=== PATIENT | female | born 1985 | race Caucasian/White ===

== ENCOUNTER 2018-12-02 10:57 | Emergency (ER) | payer SELFPAY ==
[~2018-12-02] VITALS: Ht 167.6 cm; Wt 68.0 kg
--- NOTE | 2018-12-02 10:59 | NUR ---
ED Nurse Note: PT BROUGHT IN BY [id number] FROM HOME. AOX4. PT C/O UPPER ABDOMINAL PAIN, 02/04 X 2 DAYS AGO. PT ALSO C/O NAUSEA AND VOMITING. PT STATES SHE HAS HX OF ABDOMINAL MIGRAINES AND WAS SEEN AT [facility] X 2 DAYS AGO. PT WAS GIVEN RX FOR REGLAN BUT STATES SHE DID NOT TAKE THE MEDICATION. LAST BM X THIS AM WHICH PT STATES WAS FORMED.
[2018-12-02] MEDS ORDERED: DiphenhydrAMINE 50mg/ml Inj IVP ONE (11:00)
[2018-12-02] MEDS ORDERED: Dexamethasone 4mg/ml vial IVP ONE (11:00)
[2018-12-02 11:17] VITALS: BP 154/100
[2018-12-02 11:18] LABS: BASOPHILS % (AUTO) 1.5 % (0.0-2.0); EOSINOPHILS % (AUTO) 1.8 % (0.0-3.0); HEMOGLOBIN 17.1 G/DL (12.0-16.0); LYMPHOCYTES % (AUTO) 26.1 % (20.0-45.0); MEAN CORPUSCULAR VOLUME 95 FL (80-99); NEUTROPHILS % (AUTO) 64.6 % (45.0-75.0); PLATELET COUNT 274 K/UL (150-450); RED BLOOD COUNT 5.16 M/UL (4.20-5.40); RED CELL DISTRIBUTION WIDTH 12.2 % (11.6-14.8); WHITE BLOOD COUNT 10.8 K/UL (4.8-10.8)
--- NOTE | 2018-12-02 11:19 | Emergency Room Report ---
History of Present Illness General Chief Complaint: Vomiting Source: Medical Record Present Illness HPI 33-year-old female history of abdominal migraines presents with acute nausea and vomiting that started at 7 AM, no aggravating or alleviating factors, patient has vomited over 5-6 times, patient was recently discharged from [facility] 11/30/2018, patient denies any chest pain shortness of breath, she states that she is having really bad abdominal migraines severity is severe. States she feels abdominal cramps diffusely that come and go. Allergies: Coded Allergies: DULOXETINE (Verified Allergy, Unknown, 12/02/18) Patient History Past Medical History: see triage record Last Menstrual Period: unknown Reviewed Nursing Documentation: PMH: Agreed; PSxH: Agreed Nursing Documentation-PMH Past Medical History: No History, Except For Review of Systems All Other Systems: negative except mentioned in HPI Physical Exam Vital Signs Date Time Temp Pulse Resp B/P (MAP) Pulse Ox O2 Delivery O2 Flow Rate FiO2 12/02/18 10:57 98.6 65 20 139/77 (97) 100 Room Air Sp02 EP Interpretation: reviewed, normal General Appearance: alert, moderate distress - actively vomiting Head: normocephalic, atraumatic Eyes: bilateral eye PERRL, bilateral eye EOMI ENT: uvula midline, dry mucus membranes Neck: supple, thyroid normal, supple/symm/no masses Respiratory: lungs clear, no respiratory distress, no retraction, no accessory muscle use Cardiovascular #1: normal peripheral pulses, regular rate, rhythm, no edema, no gallop, no murmur Gastrointestinal: non tender, soft, no guarding, no rebound Musculoskeletal: normal inspection Neurologic: alert, oriented x3 Psychiatric: anxious Skin: no rash, warm/dry Medical Decision Making Diagnostic Impression: Primary Impression: Vomiting Qualified Codes: R11.2 - Nausea with vomiting, unspecified ER Course 33-year-old female history of abdominal migraines presents with acute nausea and vomiting, recently discharged from [facility] with a negative work-up, patient has not had a chance to fill her prescriptions from [facility], she presents with acute nausea and vomiting that started at 7 AM, on the differential includes appendicitis, migraines, diverticulitis, patient with a soft abdomen low suspicion for acute intra-abdominal pathology, provide patient with migraine cocktail consistent with what she received at [facility]. Patient slowly improved. Still providing patient with fluid hydration, 2 L. Reevaluation at 12:05 PM, patient's abdomen is still soft and nontender, patient however still has continued emesis, patient states she wants to leave AGAINST MEDICAL ADVICE The patient has requested to leave the ED against medical advice. The patient reason(s) for leaving include, but are not limited to, the following: "I just want to go home". I believe this patient is of sound mind and competent to refuse medical care. The patient is responding and asking questions appropriately. The patient is oriented to person, place and time. The patient is not psychotic, delusional, suicidal, homicidal or hallucinating. The patient demonstrates a normal mental capacity to make decisions regarding their healthcare. The patient is clinically sober and does not appear to be under the influence of any illicit drugs at this time. The patient has been advised of the risks, in layman terms, of leaving AMA which include, but are not limited to , coma, permanent disability, loss of current lifestyle, delay in diagnosis. Alternatives have been offered - the patient remains steadfast in their wish to leave. The patient has been advised that should they change their mind they are welcome to return to this hospital, or any other, at any time. The patient understands that in no way does an AMA discharge mean that I do not want them to have the best medical care available. To this end, I have provided appropriate prescriptions, referrals, and discharge instructions. The patient did sign AMA paperwork. The above discussion was witnessed by another member of staff. Laboratory Tests Test 12/02/18 11:10 White Blood Count 10.8 K/UL (4.8-10.8) Red Blood Count 5.16 M/UL (4.20-5.40) Hemoglobin 17.1 G/DL (12.0-16.0) H Hematocrit 49.0 % (37.0-47.0) H Mean Corpuscular Volume 95 FL (80-99) Mean Corpuscular Hemoglobin 33.2 PG (27.0-31.0) H Mean Corpuscular Hemoglobin Concent 34.9 G/DL (32.0-36.0) Red Cell Distribution Width 12.2 % (11.6-14.8) Platelet Count 274 K/UL (150-450) Mean Platelet Volume 6.4 FL (6.5-10.1) L Neutrophils (%) (Auto) 64.6 % (45.0-75.0) Lymphocytes (%) (Auto) 26.1 % (20.0-45.0) Monocytes (%) (Auto) 6.0 % (1.0-10.0) Eosinophils (%) (Auto) 1.8 % (0.0-3.0) Basophils (%) (Auto) 1.5 % (0.0-2.0) Sodium Level 139 MMOL/L (136-145) Potassium Level 3.2 MMOL/L (3.5-5.1) L Chloride Level 102 MMOL/L (98-107) Carbon Dioxide Level 22 MMOL/L (21-32) Anion Gap 16 mmol/L (5-15) H Blood Urea Nitrogen 12 mg/dL (7-18) Creatinine 1.0 MG/DL (0.55-1.30) Estimate Glomerular Filtration Rate > 60 mL/min (>60) Glucose Level 98 MG/DL (74-106) Calcium Level 9.9 MG/DL (8.5-10.1) Total Bilirubin 0.5 MG/DL (0.2-1.0) Aspartate Amino Transferase (AST) 31 U/L (15-37) Alanine Aminotransferase (ALT) 52 U/L (12-78) Alkaline Phosphatase 100 U/L (46-116) Total Protein 9.3 G/DL (6.4-8.2) H Albumin 5.2 G/DL (3.4-5.0) H Globulin 4.1 g/dL Albumin/Globulin Ratio 1.3 (1.0-2.7) Lipase 160 U/L (73-393) Human Chorionic Gonadotropin, Quant < 1 mIU/mL (1-6) L Last Vital Signs Date Time Temp Pulse Resp B/P (MAP) Pulse Ox O2 Delivery O2 Flow Rate FiO2 12/02/18 10:57 98.6 65 20 139/77 (97) 100 Room Air Disposition: AGAINST MEDICAL ADVICE Condition: Stable Referrals: [facility] Patient Instructions: Nausea and Vomiting, Adult Additional Instructions: The patient was provided with discharge instructions, notified to follow-up with a primary care doctor and or specialist in the next 24-48 hours, and to return to the ED if they have worsening of their symptoms. Please note that this report is being documented using [employer] technology. This can lead to erroneous entry secondary to incorrect interpretation by the dictating instrument. Please fill your prescriptions from Lefty Dash MD Dec 02, 2018 11:19
[2018-12-02 11:28] LABS: ANION GAP 16 mmol/L (5-15); BLOOD UREA NITROGEN 12 mg/dL (7-18); CALCIUM 9.9 MG/DL (8.5-10.1); CARBON DIOXIDE 22 MMOL/L (21-32); CHLORIDE 102 MMOL/L (98-107); POTASSIUM 3.2 MMOL/L (3.5-5.1); SODIUM 139 MMOL/L (136-145)
[2018-12-02 11:33] LABS: ALANINE AMINOTRANSFERASE 52 U/L (12-78); ALBUMIN 5.2 G/DL (3.4-5.0); ALBUMIN/GLOBULIN RATIO 1.3 (1.0-2.7); ALKALINE PHOSPHATASE 100 U/L (46-116); ASPARTATE AMINO TRANSFERASE 31 U/L (15-37); BILIRUBIN,TOTAL 0.5 MG/DL (0.2-1.0)
--- NOTE | 2018-12-02 12:00 | NUR ---
ED Nurse Note: URINE COLLECTED AND SENT TO LAB.
--- NOTE | 2018-12-02 12:05 | NUR ---
ED Nurse Note: PT VERBALIZES THAT SHE WANTS TO LEAVE WITHOUT COMPLETING TREATMENT. DR ELENA AND PRIMARY RN AT BEDSIDE. EXPLAINING THE RISKS AND CONSEQUENCES INVOLVED IN LEAVING THE HOSPITAL AT THIS TIME WELL THE BENEFITS OF CONTINUED TREATMENT. PT VERBALIZES UNDERSTANDING BUT STILL WISHES TO LEAVE. AMA FORM SIGNED BY PT AND WITNESSED BY PRIMARY RN. PT WALKED OUT OF ER WITH STEADY GAIT AND ALL BELONGINGS ACCOMPANIED BY PARTNER.
--- NOTE | 2018-12-02 12:06 | NUR ---
ED Nurse Note: DISCHARGE VITALS NOT TAKEN DUE TO PT WISHING TO LEAVE AMA.
[2018-12-02 12:10] VITALS: BP 154/100
[2018-12-02 12:13] LABS: APPEARANCE,URINE CLEAR; BILIRUBIN, URINE NEGATIVE (NEGATIVE); GLUCOSE, URINE (UA) NEGATIVE (NEGATIVE); KETONES,URINE 2+ (NEGATIVE); LEUKOCYTE ESTERASE ,URINE 1+ (NEGATIVE); NITRITE,URINE NEGATIVE (NEGATIVE); PH,URINE 7 (4.5-8.0); PROTEIN,URINE 1+ (NEGATIVE); UROBILINOGEN,URINE 1 MG/DL (0.0-1.0)
[2018-12-02 12:16] LABS: COLOR,URINE YELLOW
== END 2018-12-02 12:05 | disposition left against medical advice (07) ==
LOC: EDBD 10:57 → EMR 11:35
DX: R11.2 Nausea with vomiting, unspecified (principal); Z88.8 Allergy status to other drugs, medicaments and biological substances
CPT/HCPCS: 36415; 80053; 80307; 81003; 81025; 83690; 84702; 85025; 96361; 96374; 96375; 99284; J0780; J1100; J1200

== ENCOUNTER 2019-03-23 14:27 | Emergency (ER) | payer OTHER ==
[~2019-03-23] VITALS: Ht 167.6 cm; Wt 59.0 kg
[2019-03-23 14:56] VITALS: BP 117/71
--- NOTE | 2019-03-23 14:56 | NUR ---
ED Nurse Note: Patient came into ER with nurse from clinic. Patient c/o abdominal pain with nausea and vomiting, and migraine headache. pt states a pain scale of 4/10. Patient guarding abdomen. Patient is AAOx4, patient vital signs are stable, no respiratory or cardiac distress noted. Placed patient on cardiac monitors. ERMJazmin Lam at the bedside.
[2019-03-23] MEDS ORDERED: DiphenhydrAMINE 50mg/ml Inj IVP ONE (15:00)
[2019-03-23] MEDS ORDERED: Metoclopramide 10mg/2ml Inj IVP ONE (15:00)
[2019-03-23] MEDS ORDERED: D5NS 1,000 ML IV ONE (15:00)
--- NOTE | 2019-03-23 15:01 | Emergency Room Report ---
History of Present Illness General Chief Complaint: Abdominal Pain Source: Patient Present Illness HPI 33-year-old female history of abdominal migraines presents with acute nausea and vomiting that started 1 day ago, no aggravating or alleviating factors, patient has vomited no blood, similar to previous abdominal migraines, attempted sumatriptan, but it did not work. She states that she is having really bad abdominal migraines severity is severe. States she feels abdominal cramps diffusely that come and go. Allergies: Coded Allergies: DULOXETINE (Verified Allergy, Unknown, 12/02/18) Patient History Past Medical History: see triage record Last Menstrual Period: 03/17/19 Reviewed Nursing Documentation: PMH: Agreed; PSxH: Agreed Nursing Documentation-PMH Past Medical History: No History, Except For Review of Systems All Other Systems: negative except mentioned in HPI Physical Exam Vital Signs Date Time Temp Pulse Resp B/P (MAP) Pulse Ox O2 Delivery O2 Flow Rate FiO2 03/23/19 14:46 97.5 111 20 130/88 (102) 97 Room Air Sp02 EP Interpretation: reviewed, normal General Appearance: well appearing, no apparent distress, alert Head: normocephalic, atraumatic Eyes: bilateral eye PERRL, bilateral eye EOMI ENT: uvula midline, dry mucus membranes Neck: supple, thyroid normal, supple/symm/no masses Respiratory: lungs clear, no respiratory distress, no retraction, no accessory muscle use Cardiovascular #1: normal peripheral pulses, no edema, no gallop, no murmur, tachycardia Gastrointestinal: non tender, soft, no guarding, no rebound Musculoskeletal: normal inspection Neurologic: alert, oriented x3 Psychiatric: mood/affect normal Skin: no rash, warm/dry Medical Decision Making Diagnostic Impression: Primary Impression: Abdominal migraine Qualified Codes: G43.D0 - Abdominal migraine, not intractable ER Course 33-year-old female presents with recurrent abdominal migraine, Reglan, Zofran, Benadryl, given, steroid as well differential diagnosis also included diverticulitis appendicitis, abdomen was soft nontender no rebound no guarding Patient was rehydrated, reevaluation at 5:25 PM, patient feels better with resolution of her symptoms Disposition home with return precautions, patient has sumatriptan at the pharmacy which she will refill Laboratory Tests Test 03/23/19 15:15 White Blood Count 11.8 K/UL (4.8-10.8) H Red Blood Count 5.18 M/UL (4.20-5.40) Hemoglobin 17.0 G/DL (12.0-16.0) H Hematocrit 48.6 % (37.0-47.0) H Mean Corpuscular Volume 94 FL (80-99) Mean Corpuscular Hemoglobin 32.9 PG (27.0-31.0) H Mean Corpuscular Hemoglobin Concent 35.0 G/DL (32.0-36.0) Red Cell Distribution Width 10.3 % (11.6-14.8) L Platelet Count 229 K/UL (150-450) Mean Platelet Volume 7.1 FL (6.5-10.1) Neutrophils (%) (Auto) 77.0 % (45.0-75.0) H Lymphocytes (%) (Auto) 16.2 % (20.0-45.0) L Monocytes (%) (Auto) 5.4 % (1.0-10.0) Eosinophils (%) (Auto) 0.8 % (0.0-3.0) Basophils (%) (Auto) 0.6 % (0.0-2.0) Sodium Level 140 MMOL/L (136-145) Potassium Level 4.8 MMOL/L (3.5-5.1) Chloride Level 103 MMOL/L (98-107) Carbon Dioxide Level 21 MMOL/L (21-32) Anion Gap 16 mmol/L (5-15) H Blood Urea Nitrogen 11 mg/dL (7-18) Creatinine 0.9 MG/DL (0.55-1.30) Estimate Glomerular Filtration Rate > 60 mL/min (>60) Glucose Level 92 MG/DL (74-106) Calcium Level 9.6 MG/DL (8.5-10.1) Total Bilirubin 0.6 MG/DL (0.2-1.0) Aspartate Amino Transferase (AST) 28 U/L (15-37) Alanine Aminotransferase (ALT) 33 U/L (12-78) Alkaline Phosphatase 87 U/L (46-116) Total Protein 8.4 G/DL (6.4-8.2) H Albumin 4.5 G/DL (3.4-5.0) Globulin 3.9 g/dL Albumin/Globulin Ratio 1.2 (1.0-2.7) Lipase 105 U/L (73-393) EKG Diagnostic Results EKG Time: 15:23 EP Interpretation: NSR, rate 85, QTc 449, no acute ST elevations normal axis Rhythm Strip Diag. Results Rhythm Strip Time: 17:24 EP Interpretation: yes Rate: 83 Rhythm: NSR, no PVC's, no ectopy Last Vital Signs Date Time Temp Pulse Resp B/P (MAP) Pulse Ox O2 Delivery O2 Flow Rate FiO2 03/23/19 14:46 97.5 111 20 130/88 (102) 97 Room Air Disposition: HOME, SELF-CARE Condition: Stable Referrals: NON PHYSICIAN (PCP) [facility] Patient Instructions: Abdominal Pain, Adult, Migraine Headache, [id number] Additional Instructions: The patient was provided with discharge instructions, notified to follow-up with a primary care doctor and or specialist in the next 24-48 hours, and to return to the ED if they have worsening of their symptoms. Please note that this report is being documented using [employer] technology. This can lead to erroneous entry secondary to incorrect interpretation by the dictating instrument. Lefty Nicole MD Mar 23, 2019 15:01
--- NOTE | 2019-03-23 15:15 | NUR ---
ED Nurse Note: EKG done bedside.
[2019-03-23 15:53] LABS: ANION GAP 16 mmol/L (5-15); BLOOD UREA NITROGEN 11 mg/dL (7-18); CALCIUM 9.6 MG/DL (8.5-10.1); CARBON DIOXIDE 21 MMOL/L (21-32); CHLORIDE 103 MMOL/L (98-107); CREATININE 0.9 MG/DL (0.55-1.30); POTASSIUM 4.8 MMOL/L (3.5-5.1); SODIUM 140 MMOL/L (136-145)
[2019-03-23 15:54] LABS: BASOPHILS % (AUTO) 0.6 % (0.0-2.0); EOSINOPHILS % (AUTO) 0.8 % (0.0-3.0); HEMATOCRIT 48.6 % (37.0-47.0); LYMPHOCYTES % (AUTO) 16.2 % (20.0-45.0); MEAN CORPUSCULAR VOLUME 94 FL (80-99); MONOCYTES % (AUTO) 5.4 % (1.0-10.0); PLATELET COUNT 229 K/UL (150-450); RED BLOOD COUNT 5.18 M/UL (4.20-5.40); RED CELL DISTRIBUTION WIDTH 10.3 % (11.6-14.8); WHITE BLOOD COUNT 11.8 K/UL (4.8-10.8)
[2019-03-23 15:58] LABS: ALANINE AMINOTRANSFERASE 33 U/L (12-78); ALBUMIN 4.5 G/DL (3.4-5.0); ALBUMIN/GLOBULIN RATIO 1.2 (1.0-2.7); ALKALINE PHOSPHATASE 87 U/L (46-116); ASPARTATE AMINO TRANSFERASE 28 U/L (15-37); BILIRUBIN,TOTAL 0.6 MG/DL (0.2-1.0)
[2019-03-23 16:00] VITALS: BP 95/45
--- NOTE | 2019-03-23 16:00 | NUR ---
Chiquita mcarthur in EDM - 03/23/19 at 1949 by BERNADINE ED Nurse Note: APPLIED WET TO DRY DRESSING OVER THE OPEN WOUND AREAS PER HOSPITAL PROTOCOL.
--- NOTE | 2019-03-23 16:30 | NUR ---
Note lyubov in EDM - 03/23/19 at 1949 by BERNADINE ED Nurse Note: PATIENT RESTING IN BED WITH EYES CLOSED. NO FACIAL GRIMACING OR GUARDING NOTED. SPOUSE AT BEDSIDE.
[2019-03-23 17:00] VITALS: BP 122/54
--- NOTE | 2019-03-23 17:55 | NUR ---
ED Nurse Note: PER PATIENT, PATIENT WILL WAIT FOR HER FRIEND IN WAITING ROOM.
--- NOTE | 2019-03-23 17:55 | NUR ---
ER DISCHARGE NOTE: Patient is cleared to be discharged per ERMD Dr. Nicole, pt is aox4, on room air, with stable vital signs. pt was given dc instructions, pt was able to verbalize understanding, pt id band and iv site removed without complications. pt is able to ambulate with steady gait. pt took all belongings.
[2019-03-23 17:59] VITALS: BP 108/58
--- NOTE | 2019-03-24 15:06 | Cardiology Report ---
APPROVED REPORT EKG Measurement Heart [id number] Normal sinus rhythm Rightward axis Borderline ECG
== END 2019-03-23 17:55 | disposition home or self-care (01) ==
LOC: EMR 14:58
DX: G43.D0 Abdominal migraine, not intractable (principal); Z88.8 Allergy status to other drugs, medicaments and biological substances
CPT/HCPCS: 36415; 80053; 82962; 83690; 85025; 93005; 96365; 96375; 99284; J1200; J2405; J2765; J7030; J8540; S0028

== ENCOUNTER 2019-04-21 14:19 | Emergency (ER) | payer OTHER ==
[~2019-04-21] VITALS: Ht 167.6 cm; Wt 59.0 kg
[2019-04-21] MEDS ORDERED: DiphenhydrAMINE 50mg/ml Inj IVP ONE (14:45)
[2019-04-21] MEDS ORDERED: Metoclopramide 10mg/2ml Inj IM ONE (14:45)
[2019-04-21] MEDS ORDERED: Dexamethasone 4mg/ml vial IVP ONE (14:45)
--- NOTE | 2019-04-21 14:47 | Emergency Room Report ---
History of Present Illness General Chief Complaint: Abdominal Pain Source: Patient, Medical Record Present Illness HPI 34-year-old female with history abdominal migraines who presents to emergency room with severe abdominal cramping and vomiting consistent with her prior abdominal migraines. Patient reports symptom onset was 2 days ago. Vomiting is nonbloody nonbilious. She has been unable to control symptoms at home. She states she usually gets treated with a cocktail of Reglan, Zofran, Benadryl and steroids at [facility] and reports what has worked in the past. She denies any other recent illnesses, surgeries, trauma. She reports associated constipation. Allergies: Coded Allergies: DULOXETINE (Verified Allergy, Unknown, 12/02/18) Patient History Last Menstrual Period: 03/22/2019 Now: No : 1 Review of Systems Constitutional: Denies: chills, fever Respiratory: Denies: cough, shortness of breath Cardiovascular: Denies: chest pain, palpitations Gastrointestinal: Reports: abdominal pain, constipation, nausea, vomiting; Denies: diarrhea Genitourinary: Denies: hematuria, pain Musculoskeletal: Denies: joint swelling Skin: Denies: rash, lesions Neurological: Denies: headache, dizziness Physical Exam Vital Signs Date Time Temp Pulse Resp B/P (MAP) Pulse Ox O2 Delivery O2 Flow Rate FiO2 04/21/19 14:27 97.3 65 18 115/75 (88) 100 Room Air Sp02 EP Interpretation: reviewed General Appearance: well appearing, no apparent distress, non-toxic Head: normocephalic, atraumatic Eyes: bilateral eye normal inspection ENT: hearing grossly normal, EOM grossly intact, moist mucus membranes Neck: supple Respiratory: lungs clear, normal breath sounds, no rhonchi, no respiratory distress, speaking full sentences Cardiovascular #1: regular rate, rhythm, no edema, no gallop, normal capillary refill Cardiovascular #2: 2+ radial (R), 2+ radial (L) Gastrointestinal: soft, no mass, no organomegaly, non-distended, no guarding, no rebound Rectal: deferred Musculoskeletal: moves extm spontaneously, no lower extremity edema Neurologic: grossly normal Psychiatric: mood/affect normal Skin: warm/dry, normal turgor Medical Decision Making Diagnostic Impression: Primary Impression: Abdominal migraine Additional Impression: UTI (urinary tract infection) ER Course 34-year-old female history of abdominal migraines presents to emergency room with persistent abdominal cramping pain and vomiting. Patient unable to control per symptoms as outpatient. Patient's abdomen nontender to exam. Patient has no rebound or guarding. No signs of acute abdomen. We will treat patient's pain with cocktail that usually works or her Laboratory Tests Test 04/21/19 14:50 White Blood Count 21.3 K/UL (4.8-10.8) H Red Blood Count 5.05 M/UL (4.20-5.40) Hemoglobin 16.6 G/DL (12.0-16.0) H Hematocrit 48.3 % (37.0-47.0) H Mean Corpuscular Volume 96 FL (80-99) Mean Corpuscular Hemoglobin 32.9 PG (27.0-31.0) H Mean Corpuscular Hemoglobin Concent 34.4 G/DL (32.0-36.0) Red Cell Distribution Width 11.1 % (11.6-14.8) L Platelet Count 262 K/UL (150-450) Mean Platelet Volume 7.3 FL (6.5-10.1) Neutrophils (%) (Auto) % (45.0-75.0) Lymphocytes (%) (Auto) % (20.0-45.0) Monocytes (%) (Auto) % (1.0-10.0) Eosinophils (%) (Auto) % (0.0-3.0) Basophils (%) (Auto) % (0.0-2.0) Neutrophils % (Manual) Pending Lymphocytes % (Manual) Pending Platelet Estimate Pending Platelet Morphology Pending Urine Color Yellow Urine Appearance Slightly cloudy Urine pH 7 (4.5-8.0) Urine Specific [place] 1.020 (1.005-1.035) Urine Protein 2+ (NEGATIVE) H Urine Glucose (UA) Negative (NEGATIVE) Urine Ketones 2+ (NEGATIVE) H Urine Blood 2+ (NEGATIVE) H Urine Nitrite Negative (NEGATIVE) Urine Bilirubin 1+ (NEGATIVE) H Urine Ictotest Negative (NEGATIVE) Urine Urobilinogen 4 MG/DL (0.0-1.0) H Urine Leukocyte Esterase 1+ (NEGATIVE) H Urine RBC 5-10 /HPF (0 - 2) H Urine WBC 2-4 /HPF (0 - 2) Urine Squamous Epithelial Cells Moderate /LPF (NONE/OCC) H Urine Uric Acid Crystals Occasional /LPF (NONE) Urine Bacteria Many /HPF (NONE) H Sodium Level 138 MMOL/L (136-145) Potassium Level 3.9 MMOL/L (3.5-5.1) Chloride Level 101 MMOL/L (98-107) Carbon Dioxide Level 23 MMOL/L (21-32) Anion Gap 14 mmol/L (5-15) Blood Urea Nitrogen 9 mg/dL (7-18) Creatinine 1.0 MG/DL (0.55-1.30) Estimate Glomerular Filtration Rate > 60 mL/min (>60) Glucose Level 127 MG/DL (74-106) H Calcium Level 9.8 MG/DL (8.5-10.1) Total Bilirubin 0.5 MG/DL (0.2-1.0) Aspartate Amino Transferase (AST) 39 U/L (15-37) H Alanine Aminotransferase (ALT) 47 U/L (12-78) Alkaline Phosphatase 97 U/L (46-116) Total Protein 8.9 G/DL (6.4-8.2) H Albumin 4.7 G/DL (3.4-5.0) Globulin 4.2 g/dL Albumin/Globulin Ratio 1.1 (1.0-2.7) Lipase 124 U/L (73-393) Last Vital Signs Date Time Temp Pulse Resp B/P (MAP) Pulse Ox O2 Delivery O2 Flow Rate FiO2 04/21/19 14:27 97.3 65 18 115/75 (88) 100 Room Air Reevaluation Impression Patient's abdominal pain moderately improving. She is requesting sumatriptan which is something she has been taking for her abdominal migraines in the past. She reports a prescription she got however is not actively working and the injectable device is broken. I reviewed the device and it is not pushing medication out appropriately. Given 1 dose of sub-cutaneous sumatriptan here. Patient wants to leave AGAINST MEDICAL ADVICE. She does not want to stay for repeat treatment, IV fluids for reassessment. Disposition: AGAINST MEDICAL ADVICE Scripts Cephalexin* (KEFLEX*) 500 Mg Capsule 500 MG ORAL EVERY 6 HOURS for 5 Days, #20 CAP Prov: Kenneth Esteves M.D. 04/21/19 Sumatriptan Succinate (SUMATRIPTAN SUCCINATE*) 6 Mg/0.5 Ml Vial 6 MG SQ ONCE for 1 Day, #1 VIAL Prov: Kenneth Esteves M.D. 04/21/19 Patient Instructions: Abdominal Pain, Adult, Nausea and Vomiting, Adult Additional Instructions: You are leaving AGAINST MEDICAL ADVICE. You are able to return to the emergency room anytime if you have any worsening symptoms or like to be reevaluated. Please follow-up with your primary care doctor as soon as possible. Kenneth Esteves M.D. Apr 21, 2019 14:47
--- NOTE | 2019-04-21 14:48 | NUR ---
ED Nurse Note: Patient walked in to ER from home with fiance due to abdominal pain , N/V for 2 days. pt reported it is chronic condition occures occasionally but this time the symptom got worse over time. pt aao x4 and ambulatory but weak due to abdominal cramp. diaphoretic, pale, restless but follows commands. fiance at bedside. pt currently vomiting clear saliva. pt is in gown and on hourly manager.
--- NOTE | 2019-04-21 14:55 | NUR ---
ED Nurse Note: report received from VARGAS Delacruz
[2019-04-21 14:57] VITALS: BP 147/84
[2019-04-21 15:19] LABS: HEMATOCRIT 48.3 % (37.0-47.0); HEMOGLOBIN 16.6 G/DL (12.0-16.0); MEAN CORPUSCULAR VOLUME 96 FL (80-99); PLATELET COUNT 262 K/UL (150-450); RED BLOOD COUNT 5.05 M/UL (4.20-5.40); RED CELL DISTRIBUTION WIDTH 11.1 % (11.6-14.8); WHITE BLOOD COUNT 21.3 K/UL (4.8-10.8)
[2019-04-21 15:20] LABS: APPEARANCE,URINE SLIGHTLY CLOUDY; BILIRUBIN, URINE 1+ (NEGATIVE); GLUCOSE, URINE (UA) NEGATIVE (NEGATIVE); KETONES,URINE 2+ (NEGATIVE); LEUKOCYTE ESTERASE ,URINE 1+ (NEGATIVE); NITRITE,URINE NEGATIVE (NEGATIVE); PH,URINE 7 (4.5-8.0); PROTEIN,URINE 2+ (NEGATIVE); UROBILINOGEN,URINE 4 MG/DL (0.0-1.0)
[2019-04-21 15:23] LABS: COLOR,URINE YELLOW
[2019-04-21 15:34] LABS: ANION GAP 14 mmol/L (5-15); BLOOD UREA NITROGEN 9 mg/dL (7-18); CALCIUM 9.8 MG/DL (8.5-10.1); CARBON DIOXIDE 23 MMOL/L (21-32); CHLORIDE 101 MMOL/L (98-107); POTASSIUM 3.9 MMOL/L (3.5-5.1); SODIUM 138 MMOL/L (136-145)
[2019-04-21 15:39] LABS: ALANINE AMINOTRANSFERASE 47 U/L (12-78); ALBUMIN 4.7 G/DL (3.4-5.0); ALBUMIN/GLOBULIN RATIO 1.1 (1.0-2.7); ALKALINE PHOSPHATASE 97 U/L (46-116); ASPARTATE AMINO TRANSFERASE 39 U/L (15-37); BILIRUBIN,TOTAL 0.5 MG/DL (0.2-1.0)
--- NOTE | 2019-04-21 16:21 | NUR ---
ED Nurse Note:' pt still feel nauseous, ermd aware with another dose of zofran IV given. will continue to monitor.
[2019-04-21] MEDS ORDERED: SUMATRIPTA6 MG/0.51 SQ (16:45)
[2019-04-21] MEDS ORDERED: SUMAtriptan 6mg/0.5ml Inj SUBQ ONE (16:45)
[2019-04-21] MEDS ORDERED: CEPHALEXIN500 MG ORAL (16:46)
[2019-04-21 17:03] VITALS: BP 132/99
--- NOTE | 2019-04-21 17:04 | NUR ---
ER DISCHARGE NOTE: Patient wanted to leave via AMA. risk was explained by ERMD. IV line removed. DC instruction and prescription given and explained. pt verbalized understanding. pt ambulated out of ED with steady gait. pt took all her belongings.
== END 2019-04-21 17:03 | disposition left against medical advice (07) ==
LOC: EMR 14:49
DX: G43.D0 Abdominal migraine, not intractable (principal); N39.0 Urinary tract infection, site not specified; Z88.8 Allergy status to other drugs, medicaments and biological substances
CPT/HCPCS: 36415; 80053; 81003; 83690; 85007; 85025; 87086; 96372; 96374; 96375; 96376; 99284; J1100; J1200; J2405; J2765; J3030

== ENCOUNTER 2019-06-19 21:38 | Emergency (ER) | payer OTHER ==
[~2019-06-19] VITALS: Ht 152.4 cm; Wt 59.0 kg
[~2019-06-19 21:38] MED LIST: CEPHALEXIN500 MG ORAL; SUMATRIPTA6 MG/0.51 SQ
--- NOTE | 2019-06-19 22:06 | Emergency Room Report ---
History of Present Illness General Chief Complaint: Headache Source: Patient Present Illness HPI This a 34-year-old female with a history of migraine and abdominal migraine. This been an ongoing issue for years. She says she see a neurologist for this. She claimed that this is a migraine variant and not cyclic vomiting syndrome. She said she had acute onset abdominal pain with nausea and vomiting. This been ongoing for 5 hours. Unable to keep anything down. Unable to keep her Reglan and Zofran. Vomiting is nonbloody nonbilious. Pain is 10 out of 10. Cramping in nature. Similar to previous episodes. She had work-up with CT scan done already. She see a neurologist at [facility] in. Nothing made it better. Noise and lights makes it worse. Allergies: Coded Allergies: DULOXETINE (Verified Allergy, Unknown, 12/02/18) Patient History Past Medical History: see triage record, old chart reviewed Past Surgical History: none Pertinent Family History: none Social History: Reports: drug use - Marijuana; Denies: smoking Now: No Immunizations: other Reviewed Nursing Documentation: PMH: Agreed; PSxH: Agreed Review of Systems Eye: Denies: eye pain, blurred vision ENT: Denies: ear pain, nose congestion, throat swelling Respiratory: Denies: cough, shortness of breath Cardiovascular: Denies: chest pain, palpitations Gastrointestinal: Reports: abdominal pain, diarrhea, nausea, vomiting Musculoskeletal: Denies: back pain, joint pain Skin: Denies: rash Neurological: Reports: headache; Denies: numbness Endocrine: Denies: increased thirst, increased urine Hematologic/Lymphatic: Denies: easy bruising All Other Systems: negative except mentioned in HPI Physical Exam Vital Signs Date Time Temp Pulse Resp B/P (MAP) Pulse Ox O2 Delivery O2 Flow Rate FiO2 06/19/19 21:51 98.4 89 22 140/78 (98) 99 Room Air Vitals normal Sp02 EP Interpretation: reviewed, normal General Appearance: well appearing, no apparent distress, alert Head: normocephalic, atraumatic Eyes: bilateral eye PERRL, bilateral eye EOMI ENT: hearing grossly normal, normal pharynx Neck: full range of motion, supple, no meningismus Respiratory: chest non-tender, lungs clear, normal breath sounds Cardiovascular #1: regular rate, rhythm, no murmur Gastrointestinal: normal bowel sounds, no mass, no organomegaly, no bruit, non- distended, tenderness - Diffuse, decreased bowel sounds Musculoskeletal: back normal, normal range of motion, gait/station normal Psychiatric: mood/affect normal Medical Decision Making Diagnostic Impression: Primary Impression: Headache Qualified Codes: R51 - Headache Additional Impression: Abdominal pain Qualified Codes: R10.84 - Generalized abdominal pain ER Course Patient with headache and abdominal pain. She said this is part of her migraine problem. No evidence of an acute abdomen. I see no need for repeat diagnostic study like a CAT scan. No evidence of acute abdomen or obstruction. Better after medication. Will discharge home. Last Vital Signs Date Time Temp Pulse Resp B/P (MAP) Pulse Ox O2 Delivery O2 Flow Rate FiO2 06/19/19 21:51 98.4 89 22 140/78 (98) 99 Room Air Status: improved Disposition: HOME, SELF-CARE Condition: Stable Patient Instructions: Migraine Headache Additional Instructions: Take your medication. Follow-up with your doctor in 7 days. Return if symptoms worsen. Steve Dewitt MD Jun 19, 2019 22:05
[2019-06-19] MEDS ORDERED: Ketorolac 30mg Inj IV ONE (22:15)
[2019-06-19] MEDS ORDERED: Metoclopramide 10mg/2ml Inj IVP ONE (22:15)
[2019-06-19] MEDS ORDERED: DiphenhydrAMINE 50mg/ml Inj IVP ONE (22:15)
[2019-06-19 22:55] VITALS: BP 140/78
[2019-06-19] MEDS ORDERED: Promethazine HCl 25 MG in NS 55 ML IVPB ONE (23:00)
[2019-06-19] MEDS ORDERED: Morphine Sulfate 4mg/ml Inj (IV USE ONLY) IVP ONE (23:00)
--- NOTE | 2019-06-19 23:00 | NUR ---
ER Nurse Note: Pt walked in c/o abd pain, n/v since 5 hrs ago. Pt stated she has abdomnial migranges and has flare ups. Pt does not know her triggers. Pt vomiting at bedside. Pt is pale, VSS. All safety measures met, will continue to montior.
[2019-06-19 23:48] VITALS: BP 136/76
--- NOTE | 2019-06-19 23:51 | NUR ---
ER Nurse Note: All orders completed per ERMD orders. Pt no longer vomiting, all pain meds given. Fluids infusing via IV on RT forearm. IV patent. Hot pack given and lights turned off per pt request. Pt VSS, no signs of distress. All safety measures met; will continue to montior.
[2019-06-20 00:05] VITALS: BP 140/72
--- NOTE | 2019-06-20 00:05 | NUR ---
ED Nurse Note: All orders completed per ERMD orders. Pt cleared by health care Provider for discharge. DC instructions/prescription was given and explained to pt and verbalized understanding of teachings. All medical deviecs such as ID band and IV site removed; IV site clean and bandaged. Pt is AAO x4, ambulatory and left with all personal belongings. Pt not vomiying, denies pain.
== END 2019-06-20 00:05 | disposition home or self-care (01) ==
LOC: EMR 22:04
DX: R51 Headache (principal); R10.84 Generalized abdominal pain; Z88.8 Allergy status to other drugs, medicaments and biological substances; R11.2 Nausea with vomiting, unspecified
CPT/HCPCS: 96361; 96365; 96375; 99284; J1200; J1885; J2270; J2405; J2550; J2765; J7030

== ENCOUNTER 2019-08-09 10:40 | Emergency (ER) | payer OTHER ==
[~2019-08-09] VITALS: Ht 167.6 cm; Wt 55.3 kg
[2019-08-09 10:47] VITALS: BP 155/81
[2019-08-09] MEDS ORDERED: IMITREX50 MG ORAL (10:52)
[2019-08-09] MEDS ORDERED: ZOLOFT25 MG ORAL (10:52)
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
[2019-08-09] MEDS ORDERED: DiphenhydrAMINE 50mg/ml Inj IVP ONE (11:00)
[2019-08-09] MEDS ORDERED: Metoclopramide 10mg/2ml Inj IVP ONE (11:00)
[2019-08-09 11:09] LABS: BASOPHILS % (AUTO) 0.6 % (0.0-2.0); EOSINOPHILS % (AUTO) 0.6 % (0.0-3.0); HEMATOCRIT 43.1 % (37.0-47.0); HEMOGLOBIN 15.7 G/DL (12.0-16.0); LYMPHOCYTES % (AUTO) 16.5 % (20.0-45.0); MEAN CORPUSCULAR VOLUME 91 FL (80-99); MONOCYTES % (AUTO) 6.3 % (1.0-10.0); PLATELET COUNT 243 K/UL (150-450); RED BLOOD COUNT 4.74 M/UL (4.20-5.40); RED CELL DISTRIBUTION WIDTH 10.2 % (11.6-14.8)
[2019-08-09 11:15] LABS: ANION GAP 18 mmol/L (5-15); BLOOD UREA NITROGEN 9 mg/dL (7-18); CALCIUM 9.5 MG/DL (8.5-10.1); CARBON DIOXIDE 21 MMOL/L (21-32); CHLORIDE 100 MMOL/L (98-107); CREATININE 1.1 MG/DL (0.55-1.30); POTASSIUM 3.4 MMOL/L (3.5-5.1); SODIUM 139 MMOL/L (136-145)
[2019-08-09 11:19] LABS: ALANINE AMINOTRANSFERASE 79 U/L (12-78); ALBUMIN 4.7 G/DL (3.4-5.0); ALBUMIN/GLOBULIN RATIO 1.2 (1.0-2.7); ALKALINE PHOSPHATASE 81 U/L (46-116); ASPARTATE AMINO TRANSFERASE 39 U/L (15-37); BILIRUBIN,TOTAL 0.5 MG/DL (0.2-1.0)
[2019-08-09] MEDS ORDERED: Morphine Sulfate 4mg/ml Inj (IV USE ONLY) ONE (11:20)
[2019-08-09] MEDS ORDERED: Morphine Sulfate 4mg/ml Inj (IV USE ONLY) IVP ONE (11:30)
[2019-08-09] MEDS ORDERED: Haloperidol 5mg/ml Inj ONE (11:33)
[2019-08-09] MEDS ORDERED: Haloperidol 5mg/ml Inj IM ONE (11:45)
[2019-08-09 11:50] VITALS: BP 155/81
== END 2019-08-09 11:50 | disposition left against medical advice (07) ==
LOC: EMR 10:57
DX: R11.10 Vomiting, unspecified (principal); R10.9 Unspecified abdominal pain; R51 Headache; Z88.8 Allergy status to other drugs, medicaments and biological substances; T21.22XA Burn of second degree of abdominal wall, initial encounter; X19.XXXA Contact with other heat and hot substances, initial encounter; Y92.9 Unspecified place or not applicable
CPT/HCPCS: 36415; 80053; 83690; 85025; 96361; 96372; 96374; 96375; 99284; J1200; J1630; J2270; J2405; J2765; J7030

== ENCOUNTER 2019-10-16 15:05 | Emergency (ER) | payer OTHER ==
[~2019-10-16] VITALS: Ht 162.6 cm; Wt 59.0 kg
[~2019-10-16 15:05] MED LIST changes: +IMITREX50 MG ORAL; +ZOLOFT25 MG ORAL
[2019-10-16 15:06] VITALS: BP 134/85
[2019-10-16] MEDS ORDERED: Metoclopramide 10mg/2ml Inj IVP ONE (15:30)
[2019-10-16] MEDS ORDERED: DiphenhydrAMINE 50mg/ml Inj IVP ONE (15:30)
[2019-10-16] MEDS ORDERED: Haloperidol 5mg/ml Inj IM ONE (15:30)
[2019-10-16] MEDS ORDERED: Morphine Sulfate 4mg/ml Inj (IV USE ONLY) IVP ONE (15:30)
[2019-10-16 15:49] LABS: BASOPHILS % (AUTO) 1.1 % (0.0-2.0); EOSINOPHILS % (AUTO) 1.8 % (0.0-3.0); HEMATOCRIT 46.8 % (37.0-47.0); HEMOGLOBIN 15.7 G/DL (12.0-16.0); LYMPHOCYTES % (AUTO) 24.4 % (20.0-45.0); MEAN CORPUSCULAR VOLUME 100 FL (80-99); MONOCYTES % (AUTO) 3.9 % (1.0-10.0); NEUTROPHILS % (AUTO) 68.8 % (45.0-75.0); PLATELET COUNT 250 K/UL (150-450); RED CELL DISTRIBUTION WIDTH 13.4 % (11.6-14.8)
[2019-10-16 16:06] LABS: ANION GAP 14 mmol/L (5-15); BLOOD UREA NITROGEN 6 mg/dL (7-18); CALCIUM 9.5 MG/DL (8.5-10.1); CARBON DIOXIDE 24 MMOL/L (21-32); CHLORIDE 102 MMOL/L (98-107); POTASSIUM 4.3 MMOL/L (3.5-5.1); SODIUM 140 MMOL/L (136-145)
[2019-10-16 16:10] LABS: ALANINE AMINOTRANSFERASE 15 U/L (12-78); ALBUMIN 4.5 G/DL (3.4-5.0); ALBUMIN/GLOBULIN RATIO 1.1 (1.0-2.7); ALKALINE PHOSPHATASE 90 U/L (46-116); ASPARTATE AMINO TRANSFERASE 16 U/L (15-37); BILIRUBIN,TOTAL 0.4 MG/DL (0.2-1.0)
[2019-10-16 17:00] VITALS: BP 129/86
[2019-10-16 17:07] LABS: APPEARANCE,URINE SLIGHTLY CLOUDY; BILIRUBIN, URINE NEGATIVE (NEGATIVE); COLOR,URINE AMBER; GLUCOSE, URINE (UA) NEGATIVE (NEGATIVE); KETONES,URINE 1+ (NEGATIVE); LEUKOCYTE ESTERASE ,URINE 3+ (NEGATIVE); NITRITE,URINE NEGATIVE (NEGATIVE); PH,URINE 9 (4.5-8.0); PROTEIN,URINE 1+ (NEGATIVE); UROBILINOGEN,URINE NORMAL MG/DL (0.0-1.0)
[2019-10-16] MEDS ORDERED: ONDANSETRON ODT4 MG BC (17:23)
[2019-10-16] MEDS ORDERED: FAMOTIDINE20 MG ORAL (17:23)
[2019-10-16 17:29] VITALS: BP 120/76
--- NOTE | 2019-10-16 19:18 | Emergency Room Report ---
History of Present Illness General Chief Complaint: Vomiting Source: Patient, Medical Record Present Illness HPI 34-year-old female presents for abdominal pain and vomiting. States that she has history of abdominal migraines. States triggered by stress. States she feels anxious.. Abdominal pain is cramping, 8 out of 10, nonradiating. Notes nausea and vomiting. Denies fevers or chills. Denies diarrhea. Denies chest pain or shortness of breath. No other aggravating relieving factors. Denies any other associated symptoms Allergies: Coded Allergies: DULOXETINE (Verified Allergy, Unknown, 12/02/18) COVID-19 Screening Contact w/high risk pt: No Recent Travel to affected area: No Experienced COVID-19 symptoms?: No COVID-19 Testing performed WATER CHEMIST: No Patient History Past Medical History: psych hx, other - abdominal migraine Past Surgical History: none Pertinent Family History: none Social History: Denies: smoking, alcohol use, drug use Last Menstrual Period: 10/11/19 Now: No Immunizations: UTD Reviewed Nursing Documentation: PMH: Agreed; PSxH: Agreed Nursing Documentation-PMH Past Medical History: No History, Except For Review of Systems All Other Systems: negative except mentioned in HPI Physical Exam Vital Signs Date Time Temp Pulse Resp B/P (MAP) Pulse Ox O2 Delivery O2 Flow Rate FiO2 10/16/19 15:06 98.1 86 18 134/85 99 Room Air Sp02 EP Interpretation: reviewed, normal General Appearance: alert, GCS 15, non-toxic, mild distress Head: normocephalic, atraumatic Eyes: bilateral eye normal inspection, bilateral eye PERRL ENT: hearing grossly normal, normal pharynx, no angioedema, normal voice Neck: full range of motion, supple/symm/no masses Respiratory: chest non-tender, lungs clear, normal breath sounds, speaking full sentences Cardiovascular #1: regular rate, rhythm, no edema Cardiovascular #2: 2+ carotid (R), 2+ carotid (L), 2+ radial (R), 2+ radial (L) , 2+ dorsalis pedis (R), 2+ dorsalis pedis (L) Gastrointestinal: normal bowel sounds, soft, non-distended, no guarding, no rebound, tenderness Rectal: deferred Genitourinary: normal inspection, no CVA tenderness Musculoskeletal: back normal, normal range of motion, gait/station normal, non- tender Neurologic: alert, motor strength/tone normal, oriented x3, sensory intact, responsive, speech normal Psychiatric: judgement/insight normal, memory normal, no suicidal/homicidal ideation, anxious Reflexes: 3+ bicep (R), 3+ bicep (L), 3+ tricep (R), 3+ tricep (L), 3+ knee (R) , 3+ knee (L) Lymphatic: no adenopathy Medical Decision Making Diagnostic Impression: Primary Impression: Abdominal migraine Qualified Codes: G43.D0 - Abdominal migraine, not intractable ER Course Hospital Course 34-year-old F presents to ED with epigastric pain with N/V. differential diagnosis: gastritis, SBO, cholecystits Clinical course Patient placed on stretcher. On monitor tech. After initial history and physical I ordered labs, IV fluids, Pepcid, Haldol, Benadryl, Reglan Labs - no leukocytosis, no electrolyte abnormalities, LFTs normal, UA unremarkable Upon reassessment, patient states pain has improved. I discussed findings with patient. States she wishes to be discharged I feel this is a highly complex case requiring extensive working including EKG/ Rhythm strip, Xray/CT/US, Blood/urine lab work, repeat exams while in ED, and administration of strong opiates/narcotics for pain control, admission to hospital or close patient follow up. Diagnosis -abdominal migraine Stable and discharged to home with prescriptions for Zofran, Pepcid. Followup with PMD. Return to ED if symptoms recur or worsen Labs Test 10/16/19 15:27 10/16/19 16:58 White Blood Count 11.0 K/UL (4.8-10.8) Red Blood Count 4.70 M/UL (4.20-5.40) Hemoglobin 15.7 G/DL (12.0-16.0) Hematocrit 46.8 % (37.0-47.0) Mean Corpuscular Volume 100 FL (80-99) Mean Corpuscular Hemoglobin 33.4 PG (27.0-31.0) Mean Corpuscular Hemoglobin Concent 33.5 G/DL (32.0-36.0) Red Cell Distribution Width 13.4 % (11.6-14.8) Platelet Count 250 K/UL (150-450) Mean Platelet Volume 7.8 FL (6.5-10.1) Neutrophils (%) (Auto) 68.8 % (45.0-75.0) Lymphocytes (%) (Auto) 24.4 % (20.0-45.0) Monocytes (%) (Auto) 3.9 % (1.0-10.0) Eosinophils (%) (Auto) 1.8 % (0.0-3.0) Basophils (%) (Auto) 1.1 % (0.0-2.0) Sodium Level 140 MMOL/L (136-145) Potassium Level 4.3 MMOL/L (3.5-5.1) Chloride Level 102 MMOL/L (98-107) Carbon Dioxide Level 24 MMOL/L (21-32) Anion Gap 14 mmol/L (5-15) Blood Urea Nitrogen 6 mg/dL (7-18) Creatinine 1.0 MG/DL (0.55-1.30) Estimat Glomerular Filtration Rate > 60 mL/min (>60) Glucose Level 126 MG/DL (74-106) Calcium Level 9.5 MG/DL (8.5-10.1) Total Bilirubin 0.4 MG/DL (0.2-1.0) Aspartate Amino Transf (AST/SGOT) 16 U/L (15-37) Alanine Aminotransferase (ALT/SGPT) 15 U/L (12-78) Alkaline Phosphatase 90 U/L (46-116) Total Protein 8.6 G/DL (6.4-8.2) Albumin 4.5 G/DL (3.4-5.0) Globulin 4.1 g/dL Albumin/Globulin Ratio 1.1 (1.0-2.7) Lipase 93 U/L (73-393) Urine Color [place] Urine Appearance Slightly cloudy Urine pH 9 (4.5-8.0) Urine Specific [place] 1.015 (1.005-1.035) Urine Protein 1+ (NEGATIVE) Urine Glucose (UA) Negative (NEGATIVE) Urine Ketones 1+ (NEGATIVE) Urine Blood 1+ (NEGATIVE) Urine Nitrite Negative (NEGATIVE) Urine Bilirubin Negative (NEGATIVE) Urine Ictotest Negative (NEGATIVE) Urine Urobilinogen Normal MG/DL (0.0-1.0) Urine Leukocyte Esterase 3+ (NEGATIVE) Urine RBC 5-10 /HPF (0 - 2) Urine WBC 30-40 /HPF (0 - 2) Urine Squamous Epithelial Cells Many /LPF (NONE/OCC) Urine Bacteria Many /HPF (NONE) Urine Mucus Moderate /LPF (NONE/OCC) Urine Trichomonas /HPF (NONE) Urine HCG, Qualitative Negative (NEGATIVE) Last Vital Signs Date Time Temp Pulse Resp B/P (MAP) Pulse Ox O2 Delivery O2 Flow Rate FiO2 10/16/19 17:29 97.9 83 16 120/76 99 Room Air Status: improved Disposition: HOME, SELF-CARE Condition: Stable Scripts Famotidine* (Pepcid 20mg tablet*) 20 Mg Tablet 20 MG ORAL DAILY, #30 TAB 0 Refills Prov: Mitch Torres MD 10/16/19 Ondansetron Odt* (ZOFRAN ODT*) 4 Mg Tab.rapdis 4 MG BC EVERY 6 HOURS PRN for Nausea & Vomiting, #10 TAB 0 Refills Prov: Mitch Torres MD 10/16/19 Referrals: NON PHYSICIAN (PCP) Kelly Arora [facility]. [facility] Patient Instructions: Nausea and Vomiting, Adult, [id number] Mitch Torres MD Oct 16, 2019 19:18
[2019-10-20] MEDS ORDERED: NITROFURANTOIN100 M2 ORAL ×2 (11:51→14:38)
== END 2019-10-16 17:29 | disposition home or self-care (01) ==
LOC: EMR 16:06
DX: G43.D0 Abdominal migraine, not intractable (principal); Z88.8 Allergy status to other drugs, medicaments and biological substances
CPT/HCPCS: 36415; 80053; 81003; 81025; 83690; 85025; 87086; 87181; 96361; 96372; 96374; 96375; 99284; J1200; J1630; J2270; J2765; J7030; S0028

== ENCOUNTER → 2020-01-30 | Emergency (ER) | payer OTHER ==
[~2020-01-30] VITALS: Ht 167.6 cm; Wt 56.7 kg
[~2020-01-30] MED LIST changes: +BENADRYL25 M3 PO; +FAMOTIDINE20 MG ORAL; +Haloperidol 5mg/ml Inj IM ONE; +Haloperidol 5mg/ml Inj ONE; +Metoclopramide 10mg/2ml Inj IVP ONE; +Morphine Sulfate 4mg/ml Inj (IV USE ONLY) IVP ONE; +NITROFURANTOIN100 M2 ORAL; +ONDANSETRON ODT4 MG BC; +REGLAN10 M1 ORAL; +VENLAFAXINE HC150 MG ORAL; +cefTRIAXone 1 GM in NS 55 ML IVPB ONE
--- NOTE | 2020-01-30 14:06 | Emergency Room Report ---
History of Present Illness General Chief Complaint: Abdominal Pain Source: Patient Present Illness HPI 34-year-old female with past medical history of chronic abdominal migraines (diagnosed at [facility] by neurology) and marijuana use presents to the ED with complaint of diffuse abdominal cramping since (4 days ago). She states that she has felt similarly in the past when she experienced abdominal migraines. She states that typically the symptoms are alleviated by smoking marijuana and with some sort of drug patch that her neurologist gives her. She otherwise denies any hematemesis, melena, hematochezia, hematuria, dysuria, fever, cough, hemoptysis, chest pain or other symptoms. Denies history of EGD/colonoscopy. Denies recent sick contacts or antibiotic use. The patient's symptoms were gradual onset, severity was moderate, duration since 4 days. LMP was 1 month ago. Pt does not think she is . Quality: Aching Past medical history: abdominal migraines, psychiatric history Past surgical history: Denies Smoking: Denies Alcohol use: Denies Drug use: ++marijuana Review of systems: CONST: No fevers or chills, No night sweats PULMONARY: No productive cough, No shortness of breath CARDIAC: No chest pain, No palpitations GI: ++ vomiting, No diarrhea , No melena_or_BRBPR : No dysuria, No hematuria, No discharge NEURO: No new_focal_weakness_or_numbness, No confusion, No vision changes 14 point Review of Systems is otherwise negative except per HPI Physical Exam: GENERAL: Awake_alert_ nontoxic, no acute distress Spo2 100% on RA -normal; heaving / vomiting in bed EYES: Extraocular muscles are intact. Conjunctivae clear. Lids without swelling ENT: External nose and ear normal_in_appearance. Oropharynx clear. Head_atraumatic, Moist_oral_mucosa NECK: No JVD. No meningismus. No thyromegaly. Supple. Trachea midline RESP: Normal respiratory effort. Symmetric rise. No stridor. Clear_to_aus cultation_No_rales_No_wheezes CARDIAC: Regular rate and regular rhytm. No_significant pedal edema. ABDOMEN: Soft. Nondistended. Nontender_No_rebound_or_guarding. MSK: Normal muscle tone, without rigidity. Extremities without asymmetric deformity or swelling. SKIN: Warm and dry. No visible cyanosis or pallor NEUROLOGIC: Alert, oriented x3. Motor_and_sensation_grossly_intact. No truncal ataxia. Gait_normal Psych: Normal mood and affect, normal judgment and insight - COORDINATION OF CARE Case was discussed with: Patient Any labs and imaging that were ordered were interpreted as part of the medical decision making: Medical Decision Making/Plan: I reviewed previous medical records. Patient had several ER visits in the past for similar symptoms, treated successfully with Reglan and Haldol. Patient has follow-up with a GI specialist and a neurologist. Differential diagnosis includes cyclic vomiting syndrome, gastroparesis, gastritis, cholecystitis, choledocholithiasis, hepatitis, small bowel obstruction, volvulus pancreatitis, atypical appendicitis, gastroparesis, gastritis, peptic ulcer disease, among others. Patient is well appearing with stable vital signs. He is actively dry heaving in bed. No hematemesis. Abdominal exam is non peritoneal with no guarding or rebound. Labs show nonspecific leukocytosis of 14. Urinalysis is not a clean catch specimen, but has few bacteria and 2+ leukocyte. Upreg negative. Patient refused EKG. Doubt anginal equivalent for her abdominal migraine ED intervention included IVF, reglan, haldol, and pain control with morphine. First dose of antibiotic was given in the EDRocephin Patient appeared to be highly anxious and tearful throughout the entire ED stay, threatening to leave multiple times against medical advice. The patient denies any bloody stool and has no pain out of proportion to exam, and no significant risk factors for mesenteric ischemia such as atrial fibrillation or severe PAD/PVD (peripheral arterial / vascular disease), thus definitive workup to rule out mesenteric ischemia was not pursued. Patient is afebrile, without any significant tenderness in the RUQ, and a negative [place] sign. The patients presentation does not appear to be consistent with acute cholecystitis and thus definitive imaging to rule it out was not pursued. The patient has no significant risk factors for AAA (abdominal aortic aneurysm) such as age over 50 with history of hypertension, connective tissue disorder, or 1st degree relative with AAA. the patient has normal dorsalis pedis pulses, no radiation of pain to the back, and no pulsatile mass felt on exam. The janna ents profile was overall low risk for AAA and definitive workup was not pursued. The patients symptoms are not consistent with ACS (acute coronary syndrome), symptoms are not exertional, EKG without obvious ischemic change. 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 She states now she wants to leave AMA The patient decided to leave AGAINST MEDICAL ADVICE. They understand the risks, benefits, and alternatives of continued treatment versus leaving. They understand the risks including but not limited to: worsening condition, missed diagnosis, permanent disability, and even associated with lack of potential further testing, monitoring, and treatments. The patient has capacity to make this decision in my opinion. The patient was encouraged to follow up with their primary care provider as soon as possible and to return immediately if they change their mind or if symptoms worsen or for any other concerns. RN was present for the discussion. All patient questions were answered. PATIENT WILL BE AMA'D TO THE CARE OF HER GIRLFRIEND who feels comfortable taking care of her at home Allergies: Coded Allergies: DULOXETINE (Verified Allergy, Unknown, 12/02/18) COVID-19 Screening Contact w/high risk pt: No Recent Travel to affected area: No Experienced COVID-19 symptoms?: No COVID-19 Testing performed SVP CHIEF MARKETING OFFICER: No Patient History Now: No Nursing Documentation-[facility] Past Medical History: No History, Except For Physical Exam Vital Signs Date Time Temp Pulse Resp B/P (MAP) Pulse Ox O2 Delivery O2 Flow Rate FiO2 01/30/20 13:50 97.7 89 19 149/97 (114) 99 Room Air Sp02 EP Interpretation: reviewed, normal Medical Decision Making Diagnostic Impression: Primary Impression: Abdominal pain Additional Impressions: Marijuana abuse Nausea & vomiting Hypokalemia UTI (urinary tract infection) Rhythm Strip Diag. Results Rhythm Strip Time: 14:12 EP Interpretation: yes Rate: 97 Rhythm: NSR, no PVC's, no ectopy Reevaluation Time: 14:30 Last Vital Signs Date Time Temp Pulse Resp B/P (MAP) Pulse Ox O2 Delivery O2 Flow Rate FiO2 01/30/20 13:50 97.7 89 19 149/97 (114) 99 Room Air Status: improved Disposition: AGAINST MEDICAL ADVICE Admit Decision Time: 15:00 Condition: Stable Scripts Nitrofurantoin Monohyd/M-Cryst* (MACROBID 100 MG*) 100 Mg Capsule 100 MG ORAL EVERY 12 HOURS for 5 Days, #10 CAP Prov: Janay Raines D.O. 01/30/20 Diphenhydramine HCl (Benadryl) 25 Mg Capsule 25 MG PO TID for 7 Days, #21 CAP Prov: Janay Raines D.O. 01/30/20 Ondansetron Odt* (ZOFRAN ODT*) 4 Mg Tab.rapdis 4 MG BC EVERY 6 HOURS PRN for Nausea & Vomiting, #10 TAB 0 Refills Prov: Janay Raines D.O. 01/30/20 Metoclopramide Hcl* (REGLAN*) 10 Mg Tablet 10 MG ORAL THREE TIMES A DAY for 7 Days, #21 TAB Prov: Janay Raines D.O. 01/30/20 Patient Instructions: Abdominal Pain, Adult, Cannabis Use Disorder, Nausea, Adult, [id number] Additional Instructions: YOU HAVE ELECTED TO LEAVE AGAINST MEDICAL ADVICE. 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 Follow-up with your GI specialist in 1 to 2 days. Follow-up with your neurologist in regards to your chronic abdominal migraines within 1 to 2 days. Stop smoking marijuana Follow-up with your doctor sooner if your condition requires a more timely clinical reevaluation. Return to the emergency department immediately if you feel that your condition is worsening or if you have any new or concerning symptoms. Review your discharge instructions and take any prescriptions given as instructed. [facility] PROVIDES FREE OR LOW-COST HEALTH SERVICES TO PEOPLE WHO CAN SHOW PROOF THAT THEY LIVE IN [facility]. TO FIND MORE CLINICS PARTNERED WITH THE [facility] TO PROVIDE SERVICE, PLEASE CALL . Janay Raines D.O. Jan 30, 2020 14:06
[2020-01-30 14:10] VITALS: BP 149/97
[2020-01-30 14:23] LABS: BASOPHILS % (AUTO) 1.4 % (0.0-2.0); EOSINOPHILS % (AUTO) 1.1 % (0.0-3.0); HEMATOCRIT 44.5 % (37.0-47.0); HEMOGLOBIN 15.6 G/DL (12.0-16.0); LYMPHOCYTES % (AUTO) 21.2 % (20.0-45.0); MEAN CORPUSCULAR VOLUME 92 FL (80-99); MONOCYTES % (AUTO) 6.2 % (1.0-10.0); NEUTROPHILS % (AUTO) 70.1 % (45.0-75.0); PLATELET COUNT 310 K/UL (150-450); RED BLOOD COUNT 4.82 M/UL (4.20-5.40); WHITE BLOOD COUNT 14.6 K/UL (4.8-10.8)
[2020-01-30 14:24] LABS: APPEARANCE,URINE CLOUDY; BILIRUBIN, URINE NEGATIVE (NEGATIVE); GLUCOSE, URINE (UA) NEGATIVE (NEGATIVE); KETONES,URINE 1+ (NEGATIVE); LEUKOCYTE ESTERASE ,URINE 2+ (NEGATIVE); NITRITE,URINE NEGATIVE (NEGATIVE); PH,URINE 6 (4.5-8.0); PROTEIN,URINE 3+ (NEGATIVE); UROBILINOGEN,URINE 1 MG/DL (0.0-1.0)
[2020-01-30 14:27] LABS: COLOR,URINE YELLOW
[2020-01-30 14:47] LABS: CALCIUM 9.6 MG/DL (8.5-10.1); CREATININE 1.1 MG/DL (0.55-1.30); POTASSIUM 3.3 MMOL/L (3.5-5.1)
[2020-01-30 14:52] LABS: ALBUMIN 4.6 G/DL (3.4-5.0); ALBUMIN/GLOBULIN RATIO 1.1 (1.0-2.7); BILIRUBIN,TOTAL 0.4 MG/DL (0.2-1.0)
[2020-01-30 15:00] VITALS: BP 138/88
== END | disposition left against medical advice (07) ==
LOC: EMR 14:07
DX: N39.0 Urinary tract infection, site not specified (principal); F12.10 Cannabis abuse, uncomplicated; R11.2 Nausea with vomiting, unspecified; E87.6 Hypokalemia; Z88.8 Allergy status to other drugs, medicaments and biological substances
CPT/HCPCS: 36415; 80053; 80307; 81003; 81025; 83690; 84484; 84702; 85025; 85610; 85730; 96365; 96372; 96375; 99284; J0696; J1630; J2270; J2405; J2765; J7030

== ENCOUNTER 2020-02-02 09:04 | Inpatient (IN) | payer OTHER ==
[~2020-02-02] VITALS: Ht 167.6 cm; Wt 61.6 kg
[~2020-02-02 09:04] MED LIST changes: -Haloperidol 5mg/ml Inj IM ONE; -Haloperidol 5mg/ml Inj ONE; -Metoclopramide 10mg/2ml Inj IVP ONE; -Morphine Sulfate 4mg/ml Inj (IV USE ONLY) IVP ONE; -VENLAFAXINE HC150 MG ORAL; -cefTRIAXone 1 GM in NS 55 ML IVPB ONE
[2020-02-02] MEDS ORDERED: Metoclopramide 10mg/2ml Inj IVP ONE (09:15)
--- NOTE | 2020-02-02 09:15 | NUR ---
ED Nurse Note: Pt ambulated to ED from home d/t severe abdominal pain accompanied by nausea/vomiting and headache that has been going on since 01/27/20. Pt is AOx4, crying, restless (+) facial grimacing upon arrival; VSS, on RA, breathing even and unlabored.
[2020-02-02 09:30] VITALS: BP 139/90
[2020-02-02] MEDS ORDERED: DiphenhydrAMINE 50mg/ml Inj IVP ONE (09:30)
[2020-02-02] MEDS ORDERED: LORazepam Inj 2mg/ml 1ml IV ONE (09:30)
[2020-02-02] MEDS ORDERED: Ketorolac 30mg Inj IV ONE (09:30)
[2020-02-02 09:33] LABS: HEMOGLOBIN 15.5 G/DL (12.0-16.0); MEAN CORPUSCULAR VOLUME 88 FL (80-99); PLATELET COUNT 298 K/UL (150-450); RED BLOOD COUNT 4.78 M/UL (4.20-5.40); RED CELL DISTRIBUTION WIDTH 10.1 % (11.6-14.8)
--- NOTE | 2020-02-02 09:33 | Emergency Room Report ---
History of Present Illness General Chief Complaint: Nausea, Vomiting, and Diarrhea Source: Patient Present Illness HPI Patient is a 34-year-old female presents for increased nausea and vomiting. Prior history of abdominal migraines. Reports having multiple similar episodes in the past. States that she had been vomiting since approximately 5 days ago. States that she does take medications for migraine regularly. Is followed by neurology. She reports having epigastric pain associated with headache worsened by sound. Allergies: Coded Allergies: DULOXETINE (Verified Allergy, Unknown, 12/02/18) COVID-19 Screening Contact w/high risk pt: No Recent Travel to affected area: No Experienced COVID-19 symptoms?: No COVID-19 Testing performed LAND CHECKER: No Patient History Last Menstrual Period: 12/28/19 Reviewed Nursing Documentation: PMH: Agreed; PSxH: Agreed Nursing Documentation-PMH Past Medical History: No History, Except For Review of Systems All Other Systems: negative except mentioned in HPI Physical Exam Vital Signs Date Time Temp Pulse Resp B/P (MAP) Pulse Ox O2 Delivery O2 Flow Rate FiO2 02/02/20 09:06 98.6 109 17 139/90 (106) 98 Room Air Sp02 EP Interpretation: reviewed, normal General Appearance: normal inspection, well appearing, no apparent distress, alert, GCS 15, Chronically Ill Head: atraumatic ENT: normal ENT inspection, hearing grossly normal, normal voice Neck: normal inspection, full range of motion, supple, no bony tend Respiratory: normal inspection, lungs clear, normal breath sounds, no respira tory distress, no retraction, no wheezing Cardiovascular #1: regular rate, rhythm, no edema Gastrointestinal: normal bowel sounds, non tender, soft, no guarding, no hernia, tenderness - diffuse tenderness soft abdomen Genitourinary: no CVA tenderness Musculoskeletal: normal inspection, back normal, normal range of motion Neurologic: alert, motor strength/tone normal, diamond mounter III-XII nml as tested, orien marti x3, responsive, speech normal, normal inspection Psychiatric: normal inspection, judgement/insight normal, mood/affect normal Medical Decision Making Diagnostic Impression: Primary Impression: Abdominal migraine Additional Impression: UTI (urinary tract infection) ER Course Presented for nausea and vomiting. Differential diagnosis include was not limited to migraine headache, abdominal migraine, cyclic vomiting, anxiety among others. Because of complexity of patient's case laboratory tests were ord ered. Patient is had recent ER visit for similar symptoms in the past. She states that this is a chronic problem for her. She denies any hematemesis and does not have any evidence of systemic toxicity at this time. Appears to be somewhat anxious. Patient is given IV fluids as well as IV Ativan. She was also given medications for treatment of migraine including Toradol Reglan and Benadryl. Patient's white blood count was noted to be markedly elevated. Coronavirus testing was negative. Patient will be hospitalized for further evaluation treatment. CT of abd and pelvis findings: NO SIGN OF ACUTE DISEASE IN THE ABDOMEN OR PELVIS. A FEW SCATTERED FLUID-FILLED SMALL BOWEL LOOPS PERHAPS A MILD ILEUS. PATCHY GROUNDGLASS INFILTRATES IN THE LUNG BASES. QUESTION VIRAL PNEUMONITIS. IUD IN UTERUS. RIGHT ADNEXAL CYST LIKELY PHYSIOLOGIC. Dr. Wilder Scott was contacted for inpatient management due to persistent vomiting and elevated WBC. Laboratory Tests Test 02/02/20 09:18 02/02/20 09:20 02/02/20 15:45 White Blood Count 34.6 K/UL (4.8-10.8) *H Red Blood Count 4.78 M/UL (4.20-5.40) Hemoglobin 15.5 G/DL (12.0-16.0) Hematocrit 42.0 % (37.0-47.0) Mean Corpuscular Volume 88 FL (80-99) Mean Corpuscular Hemoglobin 32.4 PG (27.0-31.0) H Mean Corpuscular Hemoglobin Concent 36.8 G/DL (32.0-36.0) H Red Cell Distribution Width 10.1 % (11.6-14.8) L Platelet Count 298 K/UL (150-450) Mean Platelet Volume 6.6 FL (6.5-10.1) Lymphocytes (%) (Auto) % (20.0-45.0) Monocytes (%) (Auto) % (1.0-10.0) Eosinophils (%) (Auto) % (0.0-3.0) Basophils (%) (Auto) % (0.0-2.0) Differential Total Cells Counted 100 Neutrophils % (Manual) 91 % (45-75) H Lymphocytes % (Manual) 6 % (20-45) L Monocytes % (Manual) 0 % (1-10) L Eosinophils % (Manual) 0 % (0-3) Basophils % (Manual) 0 % (0-2) Band Neutrophils 3 % (0-8) Platelet Estimate Adequate Platelet Morphology Normal Red Blood Cell Morphology Normal Sodium Level 127 MMOL/L (136-145) L Potassium Level 2.8 MMOL/L (3.5-5.1) L Chloride Level 89 MMOL/L (98-107) L Carbon Dioxide Level 25 MMOL/L (21-32) Anion Gap 13 mmol/L (5-15) Blood Urea Nitrogen 8 mg/dL (7-18) Creatinine 0.9 MG/DL (0.55-1.30) Estimated Glomerular Filtration Rate > 60 mL/min (>60) Glucose Level 132 MG/DL (74-106) H Calcium Level 9.5 MG/DL (8.5-10.1) Phosphorus Level 1.5 MG/DL (2.5-4.9) L Magnesium Level 2.0 MG/DL (1.8-2.4) Total Bilirubin 0.7 MG/DL (0.2-1.0) Aspartate Amino Transferase (AST) 31 U/L (15-37) Alanine Aminotransferase (ALT) 46 U/L (12-78) Alkaline Phosphatase 86 U/L (46-116) Total Protein 8.4 G/DL (6.4-8.2) H Albumin 4.1 G/DL (3.4-5.0) Globulin 4.3 g/dL Albumin/Globulin Ratio 1.0 (1.0-2.7) Lipase 52 U/L (73-393) L Urine Color Pale yellow Urine Appearance Clear Urine pH 6.5 (4.5-8.0) Urine Specific [place] 1.005 (1.005-1.035) Urine Protein 1+ (NEGATIVE) H Urine Glucose (UA) Negative (NEGATIVE) Urine Ketones 2+ (NEGATIVE) H Urine Blood 1+ (NEGATIVE) H Urine Nitrite Negative (NEGATIVE) Urine Bilirubin Negative (NEGATIVE) Urine Urobilinogen Normal MG/DL (0.0-1.0) Urine Leukocyte Esterase Negative (NEGATIVE) Urine RBC 0-2 /HPF (0 - 2) Urine WBC 0 /HPF (0 - 2) Urine Squamous Epithelial Cells Occasional /LPF Urine Bacteria None /HPF (NONE) Urine HCG, Qualitative Negative (NEGATIVE) Urine Opiates Screen Negative (NEGATIVE) Urine Barbiturates Screen Negative (NEGATIVE) Phencyclidine (PCP) Screen Negative (NEGATIVE) Urine Amphetamines Screen Negative (NEGATIVE) Urine Benzodiazepines Screen Negative (NEGATIVE) Urine Cocaine Screen Negative (NEGATIVE) Urine Marijuana (THC) Screen Positive (NEGATIVE) H Microbiology Date/Time Source Procedure Growth Status 02/02/20 13:09 Nasopharynx SARS-CoV-2 RdRp Gene Assay - Final Complete Last Vital Signs Date Time Temp Pulse Resp B/P (MAP) Pulse Ox O2 Delivery O2 Flow Rate FiO2 02/02/20 09:06 98.6 109 17 139/90 (106) 98 Room Air Status: improved Disposition: ADMITTED INPATIENT Condition: Stable Referrals: NOT CHOSEN IPA/,REFERRING (PCP) Robert Collins MD Feb 02, 2020 09:33
[2020-02-02 09:35] LABS: WHITE BLOOD COUNT 34.6 K/UL (4.8-10.8)
[2020-02-02 09:42] LABS: APPEARANCE,URINE CLEAR; BILIRUBIN, URINE NEGATIVE (NEGATIVE); COLOR,URINE PALE YELLOW; GLUCOSE, URINE (UA) NEGATIVE (NEGATIVE); KETONES,URINE 2+ (NEGATIVE); LEUKOCYTE ESTERASE ,URINE NEGATIVE (NEGATIVE); NITRITE,URINE NEGATIVE (NEGATIVE); PH,URINE 6.5 (4.5-8.0); PROTEIN,URINE 1+ (NEGATIVE); UROBILINOGEN,URINE NORMAL MG/DL (0.0-1.0)
[2020-02-02 09:51] LABS: ALANINE AMINOTRANSFERASE 46 U/L (12-78); ALBUMIN 4.1 G/DL (3.4-5.0); ALKALINE PHOSPHATASE 86 U/L (46-116); ANION GAP 13 mmol/L (5-15); ASPARTATE AMINO TRANSFERASE 31 U/L (15-37); BILIRUBIN,TOTAL 0.7 MG/DL (0.2-1.0); BLOOD UREA NITROGEN 8 mg/dL (7-18); CALCIUM 9.5 MG/DL (8.5-10.1); CARBON DIOXIDE 25 MMOL/L (21-32); CHLORIDE 89 MMOL/L (98-107); CREATININE 0.9 MG/DL (0.55-1.30); POTASSIUM 2.8 MMOL/L (3.5-5.1); SODIUM 127 MMOL/L (136-145)
[2020-02-02] MEDS: D5 1/2NS w/KCl 20mEq 1,000 ML IV SCH ×3 (10:44→13:44)
[2020-02-02] MEDS ORDERED: Morphine Sulfate 4mg/ml Inj (IV USE ONLY) IVP ONE (10:45)
[2020-02-02] MEDS ORDERED: Omnipaque-300 100ml vial INJ PRN (11:00)
--- NOTE | 2020-02-02 11:16 | NUR ---
ED Nurse Note: pt went on CT via anyi
--- NOTE | 2020-02-02 11:52 | Diagnostic Imaging Report ---
EXAM: CT CT Abdomen Pelvis w/Contrast INDICATION: Abdominal pain. Nausea vomiting and diarrhea. COMPARISON: None TECHNIQUE: Axial images were obtained through the abdomen pelvis with intravenous contrast. Sagittal and coronal reformats are generated. All CT scans at this facility are performed using dose modulation techniques as appropriate to a performed exam including the following: automated exposure control with adjustment of the mA and/or kV according to patient size. RADIATION DOSE: CTDIvol: 3 mGy DLP: 157 mGy-cm Dose information generated by the CT scanner is available in PACS. FINDINGS: Patchy groundglass infiltrates noted in the anterior aspect of the right middle lobe and a few scattered groundglass densities also noted in both lower lobes. Question viral pneumonitis. The liver and spleen are homogeneous. Gallbladder is without sludge or stone and there is no wall thickening. The pancreas is unremarkable. Adrenals are normal in morphology. The kidneys are normal in size, shape and axis. There are a few scattered fluid-filled small bowel loops perhaps a mild ileus. No sign of small bowel obstruction. The colon is also nondistended with average amount of stool. The appendix is not visualized. There is no free fluid or free air. No pathologic adenopathy demonstrated. Urinary bladder appears unremarkable. There is an IUD in the uterus. A right adnexal cyst noted. Some postsurgical changes noted in the anterior abdominal wall. IMPRESSION: NO SIGN OF ACUTE DISEASE IN THE ABDOMEN OR PELVIS. A FEW SCATTERED FLUID-FILLED SMALL BOWEL LOOPS PERHAPS A MILD ILEUS. PATCHY GROUNDGLASS INFILTRATES IN THE LUNG BASES. QUESTION VIRAL PNEUMONITIS. IUD IN UTERUS. RIGHT ADNEXAL CYST LIKELY PHYSIOLOGIC.
--- NOTE | 2020-02-02 12:00 | NUR ---
ED Nurse Note: report given to VARGAS Webster
--- NOTE | 2020-02-02 13:14 | NUR ---
TRANSFER TO MEDICAL SURGICAL: Patient transferred to [facility] as ordered, per Dr. Scott. Report given to Eleanor KAYE in [facility] Unit. Belongings and medications given to receiving nurse. Family and or S/O informed of transfer.
--- NOTE | 2020-02-02 13:29 | NUR ---
NURSE NOTES: Received patient from ER at 1320, report received from VARGAS Tsai. Patient is awake, alert and oriented x 4, verbal and able to make needs known, no SOB, bed in lowest position with breaks engaged and alarm on, IV line on left FA 20 g present, on room air, NPO per Dr. Scott. Admission orders given by Wilder Koo. Per MD, pt will be seen by him later today, patient denies any pain at this time, no vomiting or nausea upon admission to unit, no skin openings/wounds upon skin assessment,belongings checked and complete. Patient was oriented to room and staff, edjusting well to environment. Will continue to monitor and proceed with plan of care, call light within reach.
[2020-02-02] MEDS ORDERED: Morphine Sulfate 4mg/ml Inj (IV USE ONLY) IVP PRN (14:00)
[2020-02-02] MEDS: Heparin 5000 units/ml inj SUBQ SCH ×2 (15:10→22:00)
--- NOTE | 2020-02-02 15:15 | General Progress Note ---
Subjective ROS Limited/Unobtainable: No Allergies: Coded Allergies: DULOXETINE (Verified Allergy, Unknown, 12/02/18) Objective Last 24 Hour Vital Signs Date Time Temp Pulse Resp B/P (MAP) Pulse Ox O2 Delivery O2 Flow Rate FiO2 02/02/20 13:40 Room Air 02/02/20 09:35 109 17 139/90 98 02/02/20 09:30 98.6 17 139/90 98 Room Air 02/02/20 09:06 98.6 109 17 139/90 (106) 98 Room Air Laboratory Tests 02/02/20 09:18: White Blood Count 34.6*H, Red Blood Count 4.78, Hemoglobin 15.5, Hematocrit 42.0, Mean Corpuscular Volume 88, Mean Corpuscular Hemoglobin 32.4H, Mean Corpuscular Hemoglobin Concent 36.8H, Red Cell Distribution Width 10.1L, Platelet Count 298, Mean Platelet Volume 6.6, Neutrophils (%) (Auto) , Lymphocytes (%) (Auto) , Monocytes (%) (Auto) , Eosinophils (%) (Auto) , Basophils (%) (Auto) , Differential Total Cells Counted 100, Neutrophils % (Manual) 91H, Lymphocytes % (Manual) 6L, Monocytes % (Manual) 0L, Eosinophils % (Manual) 0, Basophils % (Manual) 0, Band Neutrophils 3, Platelet Estimate Adequate, Platelet Morphology Normal, Red Blood Cell Morphology Normal, Sodium Level 127L, Potassium Level 2.8L, Chloride Level 89L, Carbon Dioxide Level 25, Anion Gap 13, Blood Urea Nitrogen 8, Creatinine 0.9, Estimat Glomerular Filtration Rate > 60, Glucose Level 132H, Calcium Level 9.5, Total Bilirubin 0.7, Aspartate Amino Transf (AST/SGOT) 31, Alanine Aminotransferase (ALT/SGPT) 46, Alkaline Phosphatase 86, Total Protein 8.4H, Albumin 4.1, Globulin 4.3, Albumin/Globulin Ratio 1.0, Lipase 52L 02/02/20 09:20: Urine Color Pale yellow, Urine Appearance Clear, Urine pH 6.5, Urine Specific [place] 1.005, Urine Protein 1+H, Urine Glucose (UA) Negative, Urine Ketones 2+H , Urine Blood 1+H, Urine Nitrite Negative, Urine Bilirubin Negative, Urine Urobilinogen Normal, Urine Leukocyte Esterase Negative, Urine RBC 0-2, Urine WBC 0, Urine Squamous Epithelial Cells Occasional, Urine Bacteria None, Urine HCG, Qualitative Negative Height (Feet): 5 Height (Inches): 6.00 Weight (Pounds): 125 General Appearance: no apparent distress EENT: normal ENT inspection Neck: supple Cardiovascular: normal rate Respiratory/Chest: lungs clear Abdomen: normal bowel sounds, non tender, soft Extremities: non-tender Assessment/Plan Problem List: (1) Abdominal migraine ICD Codes: G43.D0 - Abdominal migraine, not intractable SNOMED: 45949758 (2) Nausea & vomiting ICD Codes: R11.2 - Nausea with vomiting, unspecified SNOMED: 70412071 (3) Abdominal pain ICD Codes: R10.9 - Unspecified abdominal pain SNOMED: 15429408 (4) Marijuana abuse ICD Codes: F12.10 - Cannabis abuse, uncomplicated SNOMED: 60071101 (5) Hypokalemia ICD Codes: E87.6 - Hypokalemia SNOMED: 99628908 Assessment/Plan: change IVF to NS add prn Zofran drug screen pain control will fu Matt Hobbs MD Feb 02, 2020 15:15
[2020-02-02 16:00] VITALS: BP 133/82
--- NOTE | 2020-02-02 16:08 | History & Physical ---
History of Present Illness General Date patient seen: Feb 02, 2020 Time patient seen: 16:00 Reason for Hospitalization: Nausea, Vomiting, and Diarrhea Present Illness HPI 34 y/o female w/ hx anxiety/depression, abdominal migraine with 5 days of abdominal pain, nausea, vomiting, and diarrhea. Has not fevers or chills. No BM x 5 days. Minimal passing of gas. Noted with leukocytosis of 34. CT abdomen/pelvis done with no significant findings in abdomen but noted with patchy ground glass infiltrates in lung cuts. COVID rapid PCR negative in ED. She is feeling improved with medications and IVF. Allergies: Coded Allergies: DULOXETINE (Verified Allergy, Unknown, 12/02/18) COVID-19 Screening Contact w/high risk pt: No Recent Travel to affected area: No Experienced COVID-19 symptoms?: No Medication History Scheduled Cephalexin* (Keflex*), 500 MG ORAL EVERY 6 HOURS Diphenhydramine HCl (Benadryl), 25 MG PO TID Famotidine* (Pepcid 20mg tablet*), 20 MG ORAL DAILY Metoclopramide Hcl* (Reglan*), 10 MG ORAL THREE TIMES A DAY Nitrofurantoin Monohyd/M-Cryst* (Macrobid 100 Mg*), 100 MG ORAL EVERY 12 HOURS Nitrofurantoin Monohyd/M-Cryst* (Macrobid 100 Mg*), 100 MG ORAL EVERY 12 HOURS Sertraline Hcl* (Zoloft*), Unknown Dose ORAL DAILY, (Reported) Sumatriptan Succinate (Sumatriptan Succinate*), 6 MG SQ ONCE Sumatriptan Succinate* (Imitrex*), Unknown Dose ORAL DAILY PRN MIGRAINE, (Reported) Scheduled PRN Ondansetron Odt* (Zofran Odt*), 4 MG BC EVERY 6 HOURS PRN for Nausea & Vomiting Ondansetron Odt* (Zofran Odt*), 4 MG BC EVERY 6 HOURS PRN for Nausea & Vomiting Medications Narrative Clonopin Effexor Patient History Healthcare decision maker Resuscitation status Advanced Directive on File Social History Social History: (1) Abdominal migraine Review of Systems Review of Symptoms General ROS: no weight loss or fever Psychological ROS: no depression or mood changes, no memory loss Ophthalmic ROS: no visual changes or eye irritation ENT ROS: no nasal congestion, hearing loss, dizziness Allergy and Immunology ROS: no allergic symptoms or urticaria Hematological and Lymphatic ROS: no swollen glands, unusual bleeding or bruising Endocrine ROS: no polyuria, polydipsia, weight changes, temperature intolerance Respiratory ROS: no cough, shortness of breath, or wheezing Cardiovascular ROS: no chest pain or dyspnea on exertion Gastrointestinal ROS: + abdominal pain Musculoskeletal ROS: no myalgias or arthralgias Neurological ROS: no TIA or stroke symptoms Dermatological ROS: no new or changing skin lesions, rashes or pruritis Physical Exam Physical Exam General appearance: alert, cooperative, no distress, appears stated age Head: Normocephalic, without obvious abnormality, atraumatic Eyes: conjunctivae/corneas clear. PERRL, EOM's intact. Fundi benign Throat: Lips, mucosa, and tongue normal. Teeth and gums normal Neck: supple, symmetrical, trachea midline, no adenopathy, thyroid: not enlarged, symmetric, no tenderness/mass/nodules, no carotid bruit and no JVD Lungs: clear to auscultation bilaterally Heart: regular rate and rhythm, S1, S2 normal, no murmur, click, rub or gallop Abdomen: soft, tender periumbilical area. Bowel sounds normal. No masses, no organomegaly Extremities: extremities normal, atraumatic, no cyanosis or edema Pulses: 2+ and symmetric Skin: Skin color, texture, turgor normal. No rashes or lesions Neurologic: Grossly normal Last 24 Hour Vital Signs Date Time Temp Pulse Resp B/P (MAP) Pulse Ox O2 Delivery O2 Flow Rate FiO2 02/02/20 13:40 Room Air 02/02/20 09:35 109 17 139/90 98 02/02/20 09:30 98.6 17 139/90 98 Room Air 02/02/20 09:06 98.6 109 17 139/90 (106) 98 Room Air Laboratory Tests Test 02/02/20 09:18 02/02/20 09:20 White Blood Count 34.6 K/UL (4.8-10.8) *H Red Blood Count 4.78 M/UL (4.20-5.40) Hemoglobin 15.5 G/DL (12.0-16.0) Hematocrit 42.0 % (37.0-47.0) Mean Corpuscular Volume 88 FL (80-99) Mean Corpuscular Hemoglobin 32.4 PG (27.0-31.0) H Mean Corpuscular Hemoglobin Concent 36.8 G/DL (32.0-36.0) H Red Cell Distribution Width 10.1 % (11.6-14.8) L Platelet Count 298 K/UL (150-450) Mean Platelet Volume 6.6 FL (6.5-10.1) Neutrophils (%) (Auto) % (45.0-75.0) Lymphocytes (%) (Auto) % (20.0-45.0) Monocytes (%) (Auto) % (1.0-10.0) Eosinophils (%) (Auto) % (0.0-3.0) Basophils (%) (Auto) % (0.0-2.0) Differential Total Cells Counted 100 Neutrophils % (Manual) 91 % (45-75) H Lymphocytes % (Manual) 6 % (20-45) L Monocytes % (Manual) 0 % (1-10) L Eosinophils % (Manual) 0 % (0-3) Basophils % (Manual) 0 % (0-2) Band Neutrophils 3 % (0-8) Platelet Estimate Adequate Platelet Morphology Normal Red Blood Cell Morphology Normal Sodium Level 127 MMOL/L (136-145) L Potassium Level 2.8 MMOL/L (3.5-5.1) L Chloride Level 89 MMOL/L (98-107) L Carbon Dioxide Level 25 MMOL/L (21-32) Anion Gap 13 mmol/L (5-15) Blood Urea Nitrogen 8 mg/dL (7-18) Creatinine 0.9 MG/DL (0.55-1.30) Estimat Glomerular Filtration Rate > 60 mL/min (>60) Glucose Level 132 MG/DL (74-106) H Calcium Level 9.5 MG/DL (8.5-10.1) Total Bilirubin 0.7 MG/DL (0.2-1.0) Aspartate Amino Transf (AST/SGOT) 31 U/L (15-37) Alanine Aminotransferase (ALT/SGPT) 46 U/L (12-78) Alkaline Phosphatase 86 U/L (46-116) Total Protein 8.4 G/DL (6.4-8.2) H Albumin 4.1 G/DL (3.4-5.0) Globulin 4.3 g/dL Albumin/Globulin Ratio 1.0 (1.0-2.7) Lipase 52 U/L (73-393) L Urine Color Pale yellow Urine Appearance Clear Urine pH 6.5 (4.5-8.0) Urine Specific [place] 1.005 (1.005-1.035) Urine Protein 1+ (NEGATIVE) H Urine Glucose (UA) Negative (NEGATIVE) Urine Ketones 2+ (NEGATIVE) H Urine Blood 1+ (NEGATIVE) H Urine Nitrite Negative (NEGATIVE) Urine Bilirubin Negative (NEGATIVE) Urine Urobilinogen Normal MG/DL (0.0-1.0) Urine Leukocyte Esterase Negative (NEGATIVE) Urine RBC 0-2 /HPF (0 - 2) Urine WBC 0 /HPF (0 - 2) Urine Squamous Epithelial Cells Occasional /LPF Urine Bacteria None /HPF (NONE) Urine HCG, Qualitative Negative (NEGATIVE) Microbiology Date/Time Source Procedure Growth Status 02/02/20 13:09 Nasopharynx SARS-CoV-2 RdRp Gene Assay - Final Complete Height (Feet): 5 Height (Inches): 6.00 Weight (Pounds): 125 Medications Current Medications Medications (Trade) Dose Ordered Sig/Lillian Route PRN Reason Start Time Stop Time Status Last Admin Dose Admin Heparin Sodium (Porcine) (Heparin 5000 units/ml) 5,000 units Q12HR SUBQ 02/02/20 14:30 03/18/20 14:29 02/02/20 15:10 Iohexol (OMNIPAQUE-300 100ml) 100 ml NOW PRN INJ Radiology Procedure 02/02/20 11:00 02/04/20 10:59 Morphine Sulfate (Morphine Sulfate) 2 mg Q4H PRN IVP Moderate Pain (Pain Scale 4-6) 02/02/20 14:00 02/09/20 13:59 Morphine Sulfate (Morphine Sulfate) 4 mg Q4H PRN IVP Severe Pain (Pain Scale 7-10) 02/02/20 14:00 02/09/20 13:59 Ondansetron HCl (Zofran) 4 mg Q6H PRN IVP Nausea & Vomiting 02/02/20 15:14 03/03/20 15:13 Sodium Chloride 1,000 ml @ 125 mls/hr Q8H IV 02/02/20 15:14 03/03/20 15:13 02/02/20 15:25 Assessment/Plan Assessment/Plan: Problem List: * Abdominal pain, intractable nausea/vomiting * Leukocytosis * Patchy ground-glass pulmonary infiltrates * Electrolyte abnormalities * Hx abdominal Migraines Plan: * Repeat COVID PCR given patchy ground glass infiltrates * Monitor and replete electrolytes * ID consult: plans to start zosyn * GI consult, Dr. Hobbs * Clear liquid diet as tolerated * Cont IVF * Cont home klonopin and effexor * DVT ppx: heparin SC 5000 bid MIPS Hospital declaration INPATIENT level of care is warranted for this patient because patient is a 89 year old with who presents with suspicion of . I have a high level of concern because . Patient is at high risk for . Plan of care/treatment include . Patient care is expected to be greater than 2 midnights. OBSERVATION level of care is warranted for this patient. Patient is a 89 year old with who presents with . Patient will be admitted for 1 midnight, but if additional night(s) is/are necessary, patient will be converted to inpatient status for the entire hospitalization Disposition: Once the patient is stable to leave the hospital, I anticipate the patient will likely be discharged to the following environment: Estimated discharge date: I spent 70 minutes on this patient's case, and minutes was dedicated to counseling and/or care coordination. MIPS ([employer]-based Incentive Payment System) Applicable CPT: 53409, 31717 CHECK ALL THAT ARE MET: Measure #5 (CHF): All ages. Prescribe NEFTALI/ARB upon discharge for patients with left ventricular systolic dysfunction. If not, the reason is clearly documented in the medical chart. Measure #8 (CHF): All ages. Prescribe a beta luz upon discharge for patients with left ventricular systolic dysfunction. If not, the reason is clearly documented in the medical chart. Measure #47 Advance care plan or surrogate decision maker documented in the medical record. Measure #130 The provider has documented, updated, or reviewed the patients current medication list and has documented it in the patients note. Measure #374 (All): Send report to referring provider. Measure #407(Sepsis due to MSSA bacteremia): Age 18+ Patient treated with a beta-lactam antibiotic (Nafcillin, Oxacillin or Cefazolin) as definitive therapy. MEDICAL COMPLEXITY High complexity medical decision making (need 2/3 categories) Problem - need 4 points Acute/new problem with new plan for workup (4 points, 1 max) Acute/new problem without additional workup (3 points, 1 max) Unstable chronic problem actively being managed (2 point each, 2 max) Stable chronic problem actively being managed (1 point each, 2 max) Self-limited/transient process (constipation, muscle ache, etc) (1 point each, 2 max) Data - need 4 points Reviewed labs/imaging studies (1 points, 2 max) Independent review of imaging (EKG, xrays, etc) (2 points, 2 max) Discussed case with consult/other MD/RN (2 points, 2 max) High Risk - qualify if have one of the following: Severe exacerbation of acute problem, acute mental status change, IV narcotics, monitoring drug levels (vancomycin, INR, tacrolimus etc) Wilder Scott MD Feb 02, 2020 16:08
[2020-02-02] MEDS ORDERED: clonazePAM 0.5mg tab ORAL PRN (16:15)
[2020-02-02] MEDS ORDERED: VENLAFAXINE HC150 MG ORAL (16:18)
[2020-02-02 16:45] LABS: PHOSPHORUS 1.5 MG/DL (2.5-4.9)
--- NOTE | 2020-02-02 16:57 | Infectious Diseases Prog Note ---
Assessment/Plan Assessment/Plan Full consult dictated: A) 1) n/v, ? sepsis, leukocytosis, ? previous covid-19/pna, ? cap 2) CT noted 3) allergies - duloxetine P) 1) zosyn 2) check cultures 3) monitor labs, GI f/u 4) d/w Dr. Scott 5) thank you Subjective Allergies: Coded Allergies: DULOXETINE (Verified Allergy, Unknown, 12/02/18) Objective Last 24 Hour Vital Signs Date Time Temp Pulse Resp B/P (MAP) Pulse Ox O2 Delivery O2 Flow Rate FiO2 02/02/20 16:00 98.0 77 18 133/82 (99) 99 02/02/20 13:40 Room Air 02/02/20 09:35 109 17 139/90 98 02/02/20 09:30 98.6 17 139/90 98 Room Air 02/02/20 09:06 98.6 109 17 139/90 (106) 98 Room Air Height (Feet): 5 Height (Inches): 6.00 Weight (Pounds): 125 Microbiology Date/Time Source Procedure Growth Status 02/02/20 13:09 Nasopharynx SARS-CoV-2 RdRp Gene Assay - Final Complete Laboratory Tests Test 02/02/20 09:18 02/02/20 09:20 02/02/20 15:45 White Blood Count 34.6 K/UL (4.8-10.8) *H Red Blood Count 4.78 M/UL (4.20-5.40) Hemoglobin 15.5 G/DL (12.0-16.0) Hematocrit 42.0 % (37.0-47.0) Mean Corpuscular Volume 88 FL (80-99) Mean Corpuscular Hemoglobin 32.4 PG (27.0-31.0) H Mean Corpuscular Hemoglobin Concent 36.8 G/DL (32.0-36.0) H Red Cell Distribution Width 10.1 % (11.6-14.8) L Platelet Count 298 K/UL (150-450) Mean Platelet Volume 6.6 FL (6.5-10.1) Neutrophils (%) (Auto) % (45.0-75.0) Lymphocytes (%) (Auto) % (20.0-45.0) Monocytes (%) (Auto) % (1.0-10.0) Eosinophils (%) (Auto) % (0.0-3.0) Basophils (%) (Auto) % (0.0-2.0) Differential Total Cells Counted 100 Neutrophils % (Manual) 91 % (45-75) H Lymphocytes % (Manual) 6 % (20-45) L Monocytes % (Manual) 0 % (1-10) L Eosinophils % (Manual) 0 % (0-3) Basophils % (Manual) 0 % (0-2) Band Neutrophils 3 % (0-8) Platelet Estimate Adequate Platelet Morphology Normal Red Blood Cell Morphology Normal Sodium Level 127 MMOL/L (136-145) L Potassium Level 2.8 MMOL/L (3.5-5.1) L Chloride Level 89 MMOL/L (98-107) L Carbon Dioxide Level 25 MMOL/L (21-32) Anion Gap 13 mmol/L (5-15) Blood Urea Nitrogen 8 mg/dL (7-18) Creatinine 0.9 MG/DL (0.55-1.30) Estimat Glomerular Filtration Rate > 60 mL/min (>60) Glucose Level 132 MG/DL (74-106) H Calcium Level 9.5 MG/DL (8.5-10.1) Phosphorus Level 1.5 MG/DL (2.5-4.9) L Magnesium Level 2.0 MG/DL (1.8-2.4) Total Bilirubin 0.7 MG/DL (0.2-1.0) Aspartate Amino Transf (AST/SGOT) 31 U/L (15-37) Alanine Aminotransferase (ALT/SGPT) 46 U/L (12-78) Alkaline Phosphatase 86 U/L (46-116) Total Protein 8.4 G/DL (6.4-8.2) H Albumin 4.1 G/DL (3.4-5.0) Globulin 4.3 g/dL Albumin/Globulin Ratio 1.0 (1.0-2.7) Lipase 52 U/L (73-393) L Urine Color Pale yellow Urine Appearance Clear Urine pH 6.5 (4.5-8.0) Urine Specific [place] 1.005 (1.005-1.035) Urine Protein 1+ (NEGATIVE) H Urine Glucose (UA) Negative (NEGATIVE) Urine Ketones 2+ (NEGATIVE) H Urine Blood 1+ (NEGATIVE) H Urine Nitrite Negative (NEGATIVE) Urine Bilirubin Negative (NEGATIVE) Urine Urobilinogen Normal MG/DL (0.0-1.0) Urine Leukocyte Esterase Negative (NEGATIVE) Urine RBC 0-2 /HPF (0 - 2) Urine WBC 0 /HPF (0 - 2) Urine Squamous Epithelial Cells Occasional /LPF Urine Bacteria None /HPF (NONE) Urine HCG, Qualitative Negative (NEGATIVE) Urine Opiates Screen Negative (NEGATIVE) Urine Barbiturates Screen Negative (NEGATIVE) Phencyclidine (PCP) Screen Negative (NEGATIVE) Urine Amphetamines Screen Negative (NEGATIVE) Urine Benzodiazepines Screen Negative (NEGATIVE) Urine Cocaine Screen Negative (NEGATIVE) Urine Marijuana (THC) Screen Positive (NEGATIVE) H Current Medications Medications (Trade) Dose Ordered Sig/Lillian Route PRN Reason Start Time Stop Time Status Last Admin Dose Admin Clonazepam (KlonoPIN) 0.5 mg Q12H PRN ORAL For Anxiety 02/02/20 16:15 02/09/20 16:14 Docusate Sodium (Colace) 100 mg BID ORAL 02/02/20 18:00 03/03/20 17:59 Heparin Sodium (Porcine) (Heparin 5000 units/ml) 5,000 units Q12HR SUBQ 02/02/20 14:30 03/18/20 14:29 02/02/20 15:10 Iohexol (OMNIPAQUE-300 100ml) 100 ml NOW PRN INJ Radiology Procedure 02/02/20 11:00 02/04/20 10:59 Morphine Sulfate (Morphine Sulfate) 2 mg Q4H PRN IVP Moderate Pain (Pain Scale 4-6) 02/02/20 14:00 02/09/20 13:59 Morphine Sulfate (Morphine Sulfate) 4 mg Q4H PRN IVP Severe Pain (Pain Scale 7-10) 02/02/20 14:00 02/09/20 13:59 Ondansetron HCl (Zofran) 4 mg Q6H PRN IVP Nausea & Vomiting 02/02/20 15:14 03/03/20 15:13 Piperacillin Sod/ Tazobactam Sod 3.375 gm/Dextrose 100 ml @ 25 mls/hr EVERY 8 HOURS IVPB 02/02/20 22:00 02/07/20 21:59 Sodium Chloride 1,000 ml @ 125 mls/hr Q8H IV 02/02/20 15:14 03/03/20 15:13 02/02/20 15:25 Venlafaxine HCl (Effexor-XR) 150 mg DAILY ORAL 02/03/20 09:00 05/03/20 08:59 Shaka Tiwari MD Feb 02, 2020 16:57
[2020-02-02] MEDS: Docusate 100mg cap ORAL SCH (17:33)
--- NOTE | 2020-02-02 18:45 | Consultation ---
DATE OF CONSULTATION: 02/02/2020 ADDENDUM Discussed with the patient and nursing. There was no evidence of diarrhea. The patient is actually more constipated, thus C diff infectious diarrhea is unlikely in this patient. Again, we will continue Zosyn for elevated white count and possible GI sepsis pending cultures. Again, GI followup and case was discussed with Dr. Scott and the patient. Shaka Tiwari M.D. DR: NII JOB#: [id number] CC:
--- NOTE | 2020-02-02 19:18 | NUR ---
NURSE HAND-OFF: Important Events on Shift:[IV fluids, pain management, clear liquid diet, monitoring labs] Patient Status: [stable] Diet: [clear liquid] Pending Orders: [] Pending Results/Labs:[] Pending MD notification:[] Latest Vital Signs: Temperature 98.0 , Pulse 77 , B/P 133 /82 , Respiratory Rate 18 , O2 SAT 99 , Room Air, O2 Flow Rate . Vital Sign Comment: [] Latest Renteria Fall Score: 20 Fall Risk: Low Risk Safety Measures: Call light Within Reach, Bed Alarm , Side Rails Side Rails x2, Bed position . Fall Precautions: Report given to [VARGAS Hess].
--- NOTE | 2020-02-02 19:39 | NUR ---
NURSE NOTES: Patient in bed, awake and alert x4. On room air with no signs of distress or SOB. No C/O pain or nausea at this time. IV intact and running as ordered. On contact/droplet isolation pending COVID results. Bed locked and in lowest position. Call light within reach. Will continue plan of care.
[2020-02-02 20:00] VITALS: BP 127/71
--- NOTE | 2020-02-02 23:00 | Consultation ---
DATE OF CONSULTATION: 02/02/2020 INFECTIOUS DISEASES CONSULTATION CONSULTING PHYSICIAN: Shaka Tiwari MD ATTENDING PHYSICIAN: Wilder Scott MD REFERRING PHYSICIAN: Wilder Scott MD REASON FOR CONSULTATION: Abdominal pain, elevated white count, possible sepsis. CHIEF COMPLAINT: The patient's chief complaint coming to the hospital is abdominal pain, nausea, vomiting, and diarrhea. HISTORY OF PRESENT ILLNESS: This is a very pleasant 34-year-old female who has history of abdominal migraines with history of nausea, vomiting, abdominal pain, and elevated white count. She presents to the [facility] with this recurrent episode of nausea, vomiting, abdominal pain, and diarrhea. Currently no diarrhea, however. The patient was noted to have white count of 34.6. Infectious Disease consultation was requested. I am going to start the patient empirically on Zosyn. She states she has had these episodes multiple times over the years; however, white count was never this high. The patient was placed on Zosyn and cultured. The patient did have urinalysis, which was negative and a CT scan of abdomen and pelvis, which was nonrevealing except for possible some mild ileus with no bowel obstruction. Case discussed with Dr. Scott. The patient is currently on Zosyn empirically for possible sepsis, elevated white count, and GI sepsis. MAR was noted. Orders were noted. Notes were reviewed. Case also discussed with the RN. REVIEW OF SYSTEMS: CONSTITUTIONAL: The patient denies any fever, chills, or night sweats. HEAD AND NECK: No head pain, neck pain, thrush, or dysphagia. CARDIAC: No chest pain. GASTROINTESTINAL: She came in with nausea, vomiting, abdominal pain, and diarrhea. GENITOURINARY: No dysuria or frequency. PULMONARY: No significant cough, no congestion, no shortness of breath. No chest pain or hemoptysis. SKIN: No rash. EXTREMITIES: No pain. NEUROLOGIC: No seizures. Generalized fatigue. No focal weakness. GENITOURINARY: No CVA tenderness or Sidhu. PAST MEDICAL HISTORY: Includes history of abdominal migraines, history of anxiety, and history of obsessive-compulsive disorder. No history of diabetes or hypertension. ALLERGIES: Include duloxetine. No antibiotic allergies. SOCIAL HISTORY: Negative for smoking, alcohol, or drug abuse. FAMILY HISTORY: Noncontributory. MEDICATIONS: Upon reviewing the MAR, she is on the following medications. She is on Zosyn. She is on prn meds. She is on Colace, clonazepam, sodium chloride, Zofran, heparin, morphine. She was given dexamethasone in the ER, morphine, potassium, and lorazepam. Outside medications were noted and reconciliated. It looks like she was also getting antibiotics including cephalexin, famotidine, diphenhydramine, nitrofurantoin, sertraline, and sumatriptan. IVF noted. PHYSICAL EXAMINATION: VITAL SIGNS: Temperature 98.0, pulse rate 77, respiratory rate 18, blood pressure 132/82, saturation 99% on room air. GENERAL: Alert, responsive, in no acute distress. HEAD AND NECK: Oral exam, no thrush. Eye exam, no icterus. Normocephalic. Neck is supple. No JVD. HEART: No gallop or murmur. ABDOMEN: Soft. Positive bowel sounds. Some discomfort was noted on deeper palpation, but no rebound. LUNGS: Clear bilaterally. No rhonchi or rales. SKIN: No rash or dermatitis. MUSCULOSKELETAL: No effusions. Legs without cellulitis. PERIPHERAL VASCULAR: No cyanosis. No gangrene. No septic arthritis in the joints. GENITOURINARY: No Sidhu. No CVA tenderness. LINE SITES: Without phlebitis. NEUROLOGIC: Intact, nonfocal. Alert and oriented x3. LABORATORY DATA: UA had leukocyte esterase negative. White count 34.6 and hemoglobin 15.5. Potassium is 2.8. Creatinine 0.9. Imaging studies, CT scan of the abdomen and pelvis showed no acute abdominal disease. It did show patchy ground-glass infiltrates in the lung bases, question of viral pneumonitis. Cultures, blood cultures are pending. UA was leukocyte esterase negative. ASSESSMENT AND PLAN: 1. The patient comes in with abdominal pain, nausea, vomiting, and history of diarrhea. She does have history of recent antibiotic use, questionable C. difficile. CT scan of abdomen and pelvis showed no obvious colitis or bowel obstruction. She did have ground-glass opacities, questionable previous COVID-19 infection or viral pneumonitis or community-acquired pneumonia. Because she has significantly elevated white count, must consider sepsis. Again, possible C. difficile because of recent antibiotics, rule out infectious diarrhea. Continue Zosyn. Consider adding p.o. vancomycin or IV Flagyl pending if she can take orals. Check stool studies and C. difficile if the patient has diarrhea. Continue Zosyn for now empirically. Consider again IV Flagyl and p.o. vancomycin in addition depending on clinical response. Check blood cultures. Check followup labs. Monitor leukocytosis. The patient will be followed by GI. Continue Zosyn empirically plus/minus Flagyl and p.o. vancomycin for possible sepsis, elevated white count, possible infectious diarrhea, C. difficile. Check repeat COVID-19 testing to make sure she has not had previous COVID pneumonia. We will get PCR at this time, again question of previous, also of other viral syndrome or pneumonitis or community-acquired pneumonia. Clinically, however, she has no respiratory symptoms. 2. History of abdominal migraines with history of nausea, vomiting, and elevated white count; however, white count is higher than usual at this time. 3. History of anxiety. 4. Obsessive-compulsive disorder. 5. IV fluids. 6. Allergies include duloxetine. 7. Social history is negative. 8. Family history is noncontributory. 9. MAR was noted. 10. Case discussed with RN. 11. Case discussed with Dr. Scott. 12. Case discussed with the patient. Shaka Tiwari M.D. DR: Patrick JOB#: [id number] CC: TIMO
[2020-02-03] VITALS: BP 121/67
[2020-02-03 04:00] VITALS: BP 128/72
[2020-02-03 06:33] LABS: HEMATOCRIT 34.7 % (37.0-47.0); HEMOGLOBIN 12.3 G/DL (12.0-16.0); MEAN CORPUSCULAR VOLUME 93 FL (80-99); PLATELET COUNT 219 K/UL (150-450); RED BLOOD COUNT 3.74 M/UL (4.20-5.40); RED CELL DISTRIBUTION WIDTH 10.8 % (11.6-14.8); WHITE BLOOD COUNT 18.6 K/UL (4.8-10.8)
[2020-02-03 06:54] LABS: ALANINE AMINOTRANSFERASE 38 U/L (12-78); ALBUMIN 3.7 G/DL (3.4-5.0); ALKALINE PHOSPHATASE 79 U/L (46-116); ANION GAP 9 mmol/L (5-15); ASPARTATE AMINO TRANSFERASE 26 U/L (15-37); BILIRUBIN,TOTAL 0.4 MG/DL (0.2-1.0); BLOOD UREA NITROGEN 7 mg/dL (7-18); CALCIUM 8.6 MG/DL (8.5-10.1); CARBON DIOXIDE 29 MMOL/L (21-32); CHLORIDE 102 MMOL/L (98-107); CREATININE 0.8 MG/DL (0.55-1.30); POTASSIUM 2.9 MMOL/L (3.5-5.1); SODIUM 140 MMOL/L (136-145)
--- NOTE | 2020-02-03 06:54 | NUR ---
NURSE HAND-OFF: Important Events on Shift: Nausea once, without vomiting Patient Status: Stable Diet: Clear liquid Pending Orders: N/A Pending Results/Labs: CBC, CMP, Mag, Phos Pending MD notification: N/A Latest Vital Signs: Temperature 98.3 , Pulse 79 , B/P 128 /72 , Respiratory Rate 16 , O2 SAT 98 , Room Air, O2 Flow Rate . Vital Sign Comment: Latest Renteria Fall Score: 20 Fall Risk: Low Risk Safety Measures: Call light Within Reach, Bed Alarm Zone 1, Side Rails Side Rails x2, Bed position Low and Locked. Fall Precautions: Yellow Socks Patient Fall Education Addendum: 02/03/20 at 0655 by CLAUDINE HENAO RN Report given to VARGAS Webster
--- NOTE | 2020-02-03 07:16 | NUR ---
NURSE NOTES: Report received from VARGAS Hess. Patient in bed, awake, alert and oriented x 4, verbal and able to make needs known. No SOB, bed in lowest position with breaks engaged and alarm on, denies any pain or nausea at this time, IV line intact, on room air, will continue to monitor and proceed with plan of care, call light within reach
--- NOTE | 2020-02-03 07:46 | NUR ---
NURSE NOTES: Dr. Scott made aware of new Potassium level of 2.9, Magnesium level of 2.2 and Phosphorus of 2.3 awaiting new orders.
[2020-02-03 08:00] VITALS: BP 126/79
[2020-02-03] MEDS: Venlafaxine XR 150mg cap ORAL SCH (08:31)
[2020-02-03] MEDS: clonazePAM 0.5mg tab ORAL SCH ×2 (08:31→20:33)
[2020-02-03] MEDS: Heparin 5000 units/ml inj SUBQ SCH ×2 (08:32→20:34)
[2020-02-03] MEDS: Docusate 100mg cap ORAL SCH (08:33)
--- NOTE | 2020-02-03 08:39 | NUR ---
NURSE NOTES: Dr Scott ordered Potassium tablets 40 meq at 9 am and 5 pm for today. Noted and carried out.
--- NOTE | 2020-02-03 08:39 | NUR ---
CASE MANAGEMENT: REVIEW 34 YEAR OLD FEMALE PRESENTED TO ED FROM HOME CC: N/V/D . hx COVID SI: DEHYDRATION . ELECTROLYTE ABNORMALITIES WBC 34.6 NA 127 K 2.8 TOX SCREEN -- THC + CT -- PATCHY GROUND-GLASS INFILTRATES IN THE LUNG BASES IS: REGLAN IV X1 NS IVF BOLUS X1 BENADRYL IV X1 ATIVAN IV X1 MORPHINE IV X1 K-DUR 40MEQ PO X1 D5 1/2NG w/KCl 20 MEQ IVF X1 DECADRON IV X1 GI CONSULT CLD ADVANCE TOLERATED ID CONSULT ISOLATION PRECAUTIONS PATIENT ADMITTED TO MED/SURG UNIT 02/02/2020 DCP: PATIENT IS FROM HOME
[2020-02-03 12:00] VITALS: BP 124/77
--- NOTE | 2020-02-03 13:32 | General Progress Note ---
Subjective ROS Limited/Unobtainable: Yes Allergies: Coded Allergies: DULOXETINE (Verified Allergy, Unknown, 12/02/18) Objective Last 24 Hour Vital Signs Date Time Temp Pulse Resp B/P (MAP) Pulse Ox O2 Delivery O2 Flow Rate FiO2 02/03/20 12:00 98.1 80 18 124/77 (93) 99 02/03/20 09:00 Room Air 02/03/20 08:00 97.9 77 16 126/79 (95) 97 02/03/20 04:00 98.3 79 16 128/72 (90) 98 02/03/20 00:00 97.9 74 16 121/67 (85) 100 02/02/20 21:00 Room Air 02/02/20 20:00 98.1 88 18 127/71 (89) 99 02/02/20 16:00 98.0 77 18 133/82 (99) 99 02/02/20 13:40 Room Air Intake and Output 02/02/20 02/03/20 19:00 07:00 Intake Total 120 ml 600 ml Balance 120 ml 600 ml Intake Oral 120 ml 600 ml # Voids 2 2 # Bowel Movements 1 Laboratory Tests 02/02/20 15:45: Urine Opiates Screen Negative, Urine Barbiturates Screen Negative, Phencyclidine (PCP) Screen Negative, Urine Amphetamines Screen Negative, Urine Benzodiazepines Screen Negative, Urine Cocaine Screen Negative, Urine Marijuana (THC) Screen PositiveH 02/03/20 05:37: White Blood Count 18.6H, Red Blood Count 3.74L, Hemoglobin 12.3, Hematocrit 34.7L, Mean Corpuscular Volume 93, Mean Corpuscular Hemoglobin 32.8H, Mean Corpuscular Hemoglobin Concent 35.4, Red Cell Distribution Width 10.8L, Platelet Count 219, Mean Platelet Volume 6.3L, Neutrophils (%) (Auto) , Lymphocytes (%) (Auto) , Monocytes (%) (Auto) , Eosinophils (%) (Auto) , Basophils (%) (Auto) , Differential Total Cells Counted 100, Neutrophils % (Manual) 76H, Lymphocytes % (Manual) 20, Monocytes % (Manual) 4, Eosinophils % (Manual) 0, Basophils % (Manual) 0, Band Neutrophils 0, Platelet Estimate Adequate, Platelet Morphology Normal, Red Blood Cell Morphology Normal, Sodium Level 140#, Potassium Level 2.9L, Chloride Level 102, Carbon Dioxide Level 29, Anion Gap 9, Blood Urea Nitrogen 7, Creatinine 0.8, Estimat Glomerular Filtration Rate > 60, Glucose Level 58L, Calcium Level 8.6, Phosphorus Level 2.3L, Magnesium Level 2.2, Total Bilirubin 0.4, Aspartate Amino Transf (AST/SGOT) 26, Alanine Aminotransferase (ALT/SGPT) 38, Alkaline Phosphatase 79, Total Protein 7.4, Albumin 3.7, Globulin 3.7, Albumin/Globulin Ratio 1.0 Height (Feet): 5 Height (Inches): 6.00 Weight (Pounds): 125 General Appearance: alert EENT: normal ENT inspection Neck: supple Cardiovascular: normal rate Respiratory/Chest: decreased breath sounds Abdomen: soft, hypoactive bowel sounds Extremities: non-tender Assessment/Plan Problem List: (1) Abdominal migraine ICD Codes: G43.D0 - Abdominal migraine, not intractable SNOMED: 98208528 (2) Nausea & vomiting ICD Codes: R11.2 - Nausea with vomiting, unspecified SNOMED: 35115838 (3) Abdominal pain ICD Codes: R10.9 - Unspecified abdominal pain SNOMED: 99404024 (4) Marijuana abuse ICD Codes: F12.10 - Cannabis abuse, uncomplicated SNOMED: 79326436 (5) Hypokalemia ICD Codes: E87.6 - Hypokalemia SNOMED: 77363306 Assessment/Plan: drug screen>> positive for THC pain control infectious DZ in put appreciated Cannabinoids hyperemesis syndrome will explain, nausea and vomiting, leukocytosis and possibly diarrhea agree with stool for C.diff now in Covid isolation replace K repeat labs in am advance diet Matt Hobbs MD Feb 03, 2020 13:32
[2020-02-03] MEDS: Morphine Sulfate 2mg/ml Inj(IV/IM USE ONLY) IVP PRN ×2 (13:39→18:21)
--- NOTE | 2020-02-03 13:52 | Pulmonology Progress Note ---
Subjective ROS Limited/Unobtainable: Yes Interval Events: She feels improved. WBC down. Tolerating clear liquids. No fevers. Allergies: Coded Allergies: DULOXETINE (Verified Allergy, Unknown, 12/02/18) Objective Last 24 Hour Vital Signs Date Time Temp Pulse Resp B/P (MAP) Pulse Ox O2 Delivery O2 Flow Rate FiO2 02/03/20 12:00 98.1 80 18 124/77 (93) 99 02/03/20 09:00 Room Air 02/03/20 08:00 97.9 77 16 126/79 (95) 97 02/03/20 04:00 98.3 79 16 128/72 (90) 98 02/03/20 00:00 97.9 74 16 121/67 (85) 100 02/02/20 21:00 Room Air 02/02/20 20:00 98.1 88 18 127/71 (89) 99 02/02/20 16:00 98.0 77 18 133/82 (99) 99 Intake and Output 02/02/20 02/03/20 19:00 07:00 Intake Total 120 ml 600 ml Balance 120 ml 600 ml Intake Oral 120 ml 600 ml # Voids 2 2 # Bowel Movements 1 General Appearance: no acute distress HEENT: normocephalic, atraumatic Respiratory: lungs clear Cardiovascular: normal rate Abdomen: normal bowel sounds Extremities: no edema Microbiology Date/Time Source Procedure Growth Status 02/02/20 13:09 Nasopharynx SARS-CoV-2 RdRp Gene Assay - Final Complete Laboratory Tests 02/02/20 15:45: Urine Opiates Screen Negative, Urine Barbiturates Screen Negative, Phencyclidine (PCP) Screen Negative, Urine Amphetamines Screen Negative, Urine Benzodiazepines Screen Negative, Urine Cocaine Screen Negative, Urine Marijuana (THC) Screen PositiveH 02/03/20 05:37: White Blood Count 18.6H, Red Blood Count 3.74L, Hemoglobin 12.3, Hematocrit 34.7L, Mean Corpuscular Volume 93, Mean Corpuscular Hemoglobin 32.8H, Mean Corpuscular Hemoglobin Concent 35.4, Red Cell Distribution Width 10.8L, Platelet Count 219, Mean Platelet Volume 6.3L, Neutrophils (%) (Auto) , Lymphocytes (%) (Auto) , Monocytes (%) (Auto) , Eosinophils (%) (Auto) , Basophils (%) (Auto) , Differential Total Cells Counted 100, Neutrophils % (Manual) 76H, Lymphocytes % (Manual) 20, Monocytes % (Manual) 4, Eosinophils % (Manual) 0, Basophils % (Manual) 0, Band Neutrophils 0, Platelet Estimate Adequate, Platelet Morphology Normal, Red Blood Cell Morphology Normal, Sodium Level 140#, Potassium Level 2.9L, Chloride Level 102, Carbon Dioxide Level 29, Anion Gap 9, Blood Urea Nitrogen 7, Creatinine 0.8, Estimat Glomerular Filtration Rate > 60, Glucose Level 58L, Calcium Level 8.6, Phosphorus Level 2.3L, Magnesium Level 2.2, Total Bilirubin 0.4, Aspartate Amino Transf (AST/SGOT) 26, Alanine Aminotransferase (ALT/SGPT) 38, Alkaline Phosphatase 79, Total Protein 7.4, Albumin 3.7, Globulin 3.7, Albumin/Globulin Ratio 1.0 Current Medications Medications (Trade) Dose Ordered Sig/Lillian Route PRN Reason Start Time Stop Time Status Last Admin Dose Admin Clonazepam (KlonoPIN) 0.5 mg Q12H ORAL 02/03/20 08:00 02/09/20 07:59 02/03/20 08:31 Heparin Sodium (Porcine) (Heparin 5000 units/ml) 5,000 units Q12HR SUBQ 02/02/20 14:30 03/18/20 14:29 02/03/20 08:32 Iohexol (OMNIPAQUE-300 100ml) 100 ml NOW PRN INJ Radiology Procedure 02/02/20 11:00 02/04/20 10:59 Morphine Sulfate (Morphine Sulfate) 2 mg Q4H PRN IVP Moderate Pain (Pain Scale 4-6) 02/02/20 14:00 02/09/20 13:59 02/03/20 13:39 Morphine Sulfate (Morphine Sulfate) 4 mg Q4H PRN IVP Severe Pain (Pain Scale 7-10) 02/02/20 14:00 02/09/20 13:59 Ondansetron HCl (Zofran) 4 mg Q6H PRN IVP Nausea & Vomiting 02/02/20 15:14 03/03/20 15:13 02/03/20 13:28 Piperacillin Sod/ Tazobactam Sod 3.375 gm/Dextrose 100 ml @ 25 mls/hr EVERY 8 HOURS IVPB 02/02/20 22:00 02/07/20 21:59 02/03/20 13:27 Potassium Chloride (K-Dur) 40 meq BID@0900,1700 ORAL 02/03/20 09:00 02/03/20 17:01 02/03/20 08:31 Sodium Chloride 1,000 ml @ 125 mls/hr Q8H IV 02/02/20 15:14 03/03/20 15:13 02/03/20 08:30 Sodium Phosphate 10 mm/Sodium Chloride 278.3333 ml @ 92.778 m... ONCE ONCE IVPB 02/03/20 13:45 02/03/20 16:44 UNV Venlafaxine HCl (Effexor-XR) 150 mg DAILY ORAL 02/03/20 09:00 05/03/20 08:59 02/03/20 08:31 Assessment/Plan Assessment/Plan roblem List: * Abdominal pain, intractable nausea/vomiting * Leukocytosis * Patchy ground-glass pulmonary infiltrates * Electrolyte abnormalities * Hx abdominal Migraines Plan: * Repeat COVID PCR given patchy ground glass infiltrates * Monitor and replete electrolytes * ID consult: cont zosyn * GI consult, Dr. Hobbs appreciated * advance diet as tolerated * Cont IVF * Cont home klonopin and effexor * DVT ppx: heparin SC 5000 bid Wilder Scott MD Feb 03, 2020 13:52
--- NOTE | 2020-02-03 14:06 | NUR ---
NURSE NOTES: Worsening abdominal pain and nausea and vomiting relayed to Dr. Scott and Dr Hobbs awaiting new orders. Addendum: 02/03/20 at 1424 by Eleanor Garcia RN ordered GI cocktail but patient unable to tolerate anything PO right now, awaiting for more new orders at this time. Will continue to monitor.
--- NOTE | 2020-02-03 14:26 | NUR ---
NURSE NOTES: Dr Hobbs gave new orders for Toradol 15 mg IV push once, Benadryl 25 mg IV push once, and Reglan 10 mg IV push once. MD was made aware that patient just recently received a dose of Morphine 2 mg about 2-30 mins ago, also spoke with pharmacist Lakia and stated its okay to give Toradol dose at the moment. Will continue to monitor.
[2020-02-03] MEDS ORDERED: Metoclopramide 10mg/2ml Inj IVP SCH (14:30)
[2020-02-03] MEDS ORDERED: Ketorolac 30mg Inj IV SCH (14:30)
[2020-02-03] MEDS ORDERED: DiphenhydrAMINE 50mg/ml Inj IVP SCH (14:30)
--- NOTE | 2020-02-03 14:49 | NUR ---
NURSE NOTES: Patient was given Toradol 15 mg IV push, Benadryl 25 mg IV push once and Reglan 10 mg once IV push per Dr. Hobbs's order. Addendum: 02/03/20 at 1648 by Eleanor Garcia RN Patient's pain still unrelieved upon re-assessment, Dr. Hobbs made aware. Morphine 4 mg given for 01/05 pain on abdominal area, will continue to monitor and re-assess.
[2020-02-03] MEDS ORDERED: Sodium Phosphate 10 MM in NS 275 ML IVPB ONE (15:00)
[2020-02-03 16:00] VITALS: BP 133/75
--- NOTE | 2020-02-03 17:29 | NUR ---
INSURANCE CLINICALS/REVIEWS FAXED TO [facility] P:[phone] F:[phone]
--- NOTE | 2020-02-03 17:36 | NUR ---
NURSE NOTES: Patient refused 5 pm dose of Potassium 40 meq, pt cannot tolerate PO att his time and is having N/V, Dr. Scott was informed of refusal. Will continue to monitor.
--- NOTE | 2020-02-03 18:30 | NUR ---
NURSE NOTES: Patient still is having episodes of abdominal pain, nausea and vomiting, refused to eat dinner. Dr. Hobbs made aware. Awaiting for any new orders. Will continue to monitor for overall changes.
--- NOTE | 2020-02-03 19:18 | NUR ---
NURSE HAND-OFF: Important Events on Shift:[pain management, controlling nausea and vomiting, IV ATB and fluids] Patient Status: [stable with intermittent discomfort d/t nausea and vomiting and abd pain] Diet: [regular] Pending Orders: [] Pending Results/Labs:[] Pending MD notification:[] Latest Vital Signs: Temperature 98.1 , Pulse 85 , B/P 133 /75 , Respiratory Rate 18 , O2 SAT 99 , Room Air, O2 Flow Rate . Vital Sign Comment: [] Latest Renteria Fall Score: 20 Fall Risk: Low Risk Safety Measures: Call light Within Reach, Bed Alarm Zone 1, Side Rails Side Rails x2, Bed position Low and Locked. Fall Precautions: Yellow Socks Patient Fall Education Report given to [VARGAS Zhu].
--- NOTE | 2020-02-03 19:30 | NUR ---
NURSE NOTES: Received patient in bed. A&OX4. IV site patent and intact. Remind patient collect stool sample, patient fully understood. Bed in lowest position. Call light within reach. Will continue to monitor.
--- NOTE | 2020-02-03 19:50 | NUR ---
NURSE NOTES: Patient vomiting. Patient asking Benadryl for sleeping and pain medication.
--- NOTE | 2020-02-03 19:55 | NUR ---
NURSE NOTES: Call and left message to Dr. Scott regarding order. Waiting a call back.
[2020-02-03 20:00] VITALS: BP 152/87
--- NOTE | 2020-02-03 20:08 | NUR ---
NURSE NOTES: Obtained NPO, D51/2NS 75cc/hr, discontinue Morphine, Tylenol 650mg po q4hr for pain from Dr. Laguna.
[2020-02-03] MEDS: D5 1/2NS 1,000 ML IV SCH (20:33)
[2020-02-04] VITALS: BP 153/90
[2020-02-04 04:00] VITALS: BP 150/87
[2020-02-04 06:01] LABS: BASOPHILS % (AUTO) 0.3 % (0.0-2.0); EOSINOPHILS % (AUTO) 0.5 % (0.0-3.0); HEMATOCRIT 32.5 % (37.0-47.0); HEMOGLOBIN 11.7 G/DL (12.0-16.0); MEAN CORPUSCULAR VOLUME 91 FL (80-99); MONOCYTES % (AUTO) 4.8 % (1.0-10.0); NEUTROPHILS % (AUTO) 74.4 % (45.0-75.0); PLATELET COUNT 192 K/UL (150-450); RED BLOOD COUNT 3.56 M/UL (4.20-5.40); RED CELL DISTRIBUTION WIDTH 10.7 % (11.6-14.8); WHITE BLOOD COUNT 14.9 K/UL (4.8-10.8)
[2020-02-04 06:32] LABS: ALANINE AMINOTRANSFERASE 21 U/L (12-78); ALBUMIN 2.9 G/DL (3.4-5.0); ALBUMIN/GLOBULIN RATIO 1.2 (1.0-2.7); ALKALINE PHOSPHATASE 54 U/L (46-116); ANION GAP 6 mmol/L (5-15); ASPARTATE AMINO TRANSFERASE 12 U/L (15-37); BILIRUBIN,TOTAL 0.3 MG/DL (0.2-1.0); BLOOD UREA NITROGEN 2 mg/dL (7-18); CARBON DIOXIDE 29 MMOL/L (21-32); CHLORIDE 102 MMOL/L (98-107); CREATININE 0.7 MG/DL (0.55-1.30); POTASSIUM 3.3 MMOL/L (3.5-5.1); SODIUM 137 MMOL/L (136-145)
--- NOTE | 2020-02-04 07:30 | NUR ---
NURSE HAND-OFF: Important Events on Shift: patient had multiple vomiting episode. Zofran was given. Patient Status: Diet: NPO Pending Orders: Pending Results/Labs: Pending MD notification: Latest Vital Signs: Temperature 98.9 , Pulse 89 , B/P 150 /87 , Respiratory Rate 20 , O2 SAT 94 , Room Air, O2 Flow Rate . Vital Sign Comment: Latest Renteria Fall Score: 20 Fall Risk: Low Risk Safety Measures: Call light Within Reach, Bed Alarm Zone 1, Side Rails Side Rails x2, Bed position Low and Locked. Fall Precautions: Yellow Socks Patient Fall Education Report given to Jennie KAYE.
[2020-02-04 08:00] VITALS: BP 120/78
--- NOTE | 2020-02-04 08:01 | NUR ---
NURSE NOTES: Report received from VARGAS Zhu. Patient on contact and droplet isolation d/t PUI for COVID. Patient observed to be asleep in bed with HOB elevated, currently on room air no s/sx of SOB/Distress. IV site located on LFA gauge 20 asymptomatic, inplace and intact. Patient currently on NPO. Bed placed on lowest and locked, call light placed within reach and will continue to monitor.
--- NOTE | 2020-02-04 08:16 | Pulmonology Progress Note ---
Shanae Quiles UNIX ANALYST 02/04/20 0816: Subjective ROS Limited/Unobtainable: No Interval Events: Allergies: Coded Allergies: DULOXETINE (Verified Allergy, Unknown, 12/02/18) Subjective leuk trending down, no fevers not tolerating diet remains NPO + clear emesis + abd pain with n/v, no diarrhea today Objective Last 24 Hour Vital Signs Date Time Temp Pulse Resp B/P (MAP) Pulse Ox O2 Delivery O2 Flow Rate FiO2 02/04/20 04:00 98.9 89 20 150/87 (108) 94 02/04/20 00:00 98.9 86 20 153/90 (111) 96 02/03/20 21:00 Room Air 02/03/20 20:00 98.6 94 20 152/87 (108) 97 02/03/20 18:51 98.1 02/03/20 16:54 98.1 02/03/20 16:00 98.2 85 18 133/75 (94) 99 02/03/20 15:09 98.1 02/03/20 14:15 98.1 02/03/20 12:00 98.1 80 18 124/77 (93) 99 02/03/20 09:00 Room Air Intake and Output 02/03/20 02/04/20 19:00 07:00 Intake Total 420 ml 425 ml Balance 420 ml 425 ml Intake Oral 420 ml IV Total 425 ml # Voids 3 4 # Bowel Movements 2 General Appearance: no acute distress HEENT: normocephalic, atraumatic Respiratory: lungs clear Cardiovascular: normal rate Abdomen: normal bowel sounds - soft, tenderness lower guadrants , no rebound, no guarding Extremities: no edema Microbiology Date/Time Source Procedure Growth Status 02/02/20 17:00 Nasopharynx Coronavirus COVID-19 PCR ([facility]) - Final Complete 02/02/20 13:09 Nasopharynx SARS-CoV-2 RdRp Gene Assay - Final Complete Laboratory Tests 02/04/20 05:24: White Blood Count 14.9H, Red Blood Count 3.56L, Hemoglobin 11.7L, Hematocrit 32.5L, Mean Corpuscular Volume 91, Mean Corpuscular Hemoglobin 32.8H, Mean Corpuscular Hemoglobin Concent 35.9, Red Cell Distribution Width 10.7L, Platelet Count 192, Mean Platelet Volume 7.0, Neutrophils (%) (Auto) 74.4, Lymphocytes (%) (Auto) 20.0, Monocytes (%) (Auto) 4.8, Eosinophils (%) (Auto) 0.5, Basophils (%) (Auto) 0.3, Sodium Level 137, Potassium Level 3.3L, Chloride Level 102, Car bon Dioxide Level 29, Anion Gap 6, Blood Urea Nitrogen 2L, Creatinine 0.7, Estimat Glomerular Filtration Rate > 60, Glucose Level 99, Calcium Level 8.0L, Total Bilirubin 0.3, Aspartate Amino Transf (AST/SGOT) 12L, Alanine Aminotransferase (ALT/SGPT) 21, Alkaline Phosphatase 54, Total Protein 5.4L, Albumin 2.9L, Globulin 2.5, Albumin/Globulin Ratio 1.2 Current Medications Medications (Trade) Dose Ordered Sig/Lillian Route PRN Reason Start Time Stop Time Status Last Admin Dose Admin Acetaminophen (Tylenol) 650 mg Q4H PRN ORAL Mild Pain (Pain Scale 1-3) 02/03/20 20:15 03/04/20 20:14 Clonazepam (KlonoPIN) 0.5 mg Q12H ORAL 02/03/20 08:00 02/09/20 07:59 02/03/20 20:33 Dextrose/Sodium Chloride 1,000 ml @ 75 mls/hr [id number] IV 02/03/20 20:15 03/04/20 20:14 02/03/20 20:33 Heparin Sodium (Porcine) (Heparin 5000 units/ml) 5,000 units Q12HR SUBQ 02/02/20 14:30 03/18/20 14:29 02/03/20 20:34 Iohexol (OMNIPAQUE-300 100ml) 100 ml NOW PRN INJ Radiology Procedure 02/02/20 11:00 02/04/20 10:59 Ondansetron HCl (Zofran) 4 mg Q6H PRN IVP Nausea & Vomiting 02/02/20 15:14 03/03/20 15:13 02/03/20 20:47 Piperacillin Sod/ Tazobactam Sod 3.375 gm/Dextrose 100 ml @ 25 mls/hr EVERY 8 HOURS IVPB 02/02/20 22:00 02/07/20 21:59 02/04/20 05:32 Venlafaxine HCl (Effexor-XR) 150 mg DAILY ORAL 02/03/20 09:00 05/03/20 08:59 02/03/20 08:31 Assessment/Plan Assessment/Plan ASSESSMENT Abdominal pain with intractable nausea/vomiting Leukocytosis-trending down Patchy ground-glass pulmonary infiltrates, prob PNA Electrolyte abnormalities Hx abdominal migraines THC use ? Cannabinoids hyperemesis syndrome PLAN OF CARE [facility] floor Repeat COVID PCR given patchy ground glass infiltrates-NGT Monitor and replete electrolytes > nephro input appreciated P stable, K improving change IVF to add 20 KCL ID follows-> continue zosyn GI follows, stool C dif per GI: Cannabinoids hyperemesis syndrome will explain, nausea and vomiting, leukocytosis and possibly diarrhea advance diet as tolerated cont IVF cont home Klonopin and Effexor DVT ppx: heparin SC case discussed and evaluated by supervising physician Wilder Scott MD 02/04/20 1410: Subjective Allergies: Coded Allergies: DULOXETINE (Verified Allergy, Unknown, 12/02/18) Assessment/Plan Assessment/Plan Patient seen and examined with UNIX ANALYST and the above formulated assessment and plan. Shanae Quiles NP Feb 04, 2020 08:16 Wilder Scott MD Feb 04, 2020 14:10
[2020-02-04] MEDS: clonazePAM 0.5mg tab ORAL SCH ×2 (08:43→21:28)
[2020-02-04] MEDS: Venlafaxine XR 150mg cap ORAL SCH (08:43)
[2020-02-04] MEDS: Heparin 5000 units/ml inj SUBQ SCH ×2 (08:44→21:29)
[2020-02-04] MEDS: D5 1/2NS 1,000 ML IV SCH (08:45)
[2020-02-04] MEDS: Metoclopramide 10mg/2ml Inj IVP PRN ×2 (10:09→18:34)
[2020-02-04 12:00] VITALS: BP 145/79
--- NOTE | 2020-02-04 12:40 | General Progress Note ---
Subjective ROS Limited/Unobtainable: Yes Allergies: Coded Allergies: DULOXETINE (Verified Allergy, Unknown, 12/02/18) Subjective c/o abd pain and vomiting Objective Last 24 Hour Vital Signs Date Time Temp Pulse Resp B/P (MAP) Pulse Ox O2 Delivery O2 Flow Rate FiO2 02/04/20 12:00 97.7 77 18 145/79 (101) 98 02/04/20 09:00 Room Air 02/04/20 08:00 98.2 66 20 120/78 (92) 98 02/04/20 04:00 98.9 89 20 150/87 (108) 94 02/04/20 00:00 98.9 86 20 153/90 (111) 96 02/03/20 21:00 Room Air 02/03/20 20:00 98.6 94 20 152/87 (108) 97 02/03/20 18:51 98.1 02/03/20 16:54 98.1 02/03/20 16:00 98.2 85 18 133/75 (94) 99 02/03/20 15:09 98.1 02/03/20 14:15 98.1 Intake and Output 02/03/20 02/04/20 19:00 07:00 Intake Total 420 ml 425 ml Balance 420 ml 425 ml Intake Oral 420 ml IV Total 425 ml # Voids 3 4 # Bowel Movements 2 Laboratory Tests 02/04/20 05:24: White Blood Count 14.9H, Red Blood Count 3.56L, Hemoglobin 11.7L, Hematocrit 32.5L, Mean Corpuscular Volume 91, Mean Corpuscular Hemoglobin 32.8H, Mean Corpuscular Hemoglobin Concent 35.9, Red Cell Distribution Width 10.7L, Platelet Count 192, Mean Platelet Volume 7.0, Neutrophils (%) (Auto) 74.4, Lymphocytes (%) (Auto) 20.0, Monocytes (%) (Auto) 4.8, Eosinophils (%) (Auto) 0.5, Basophils (%) (Auto) 0.3, Sodium Level 137, Potassium Level 3.3L, Chloride Level 102, Carbon Dioxide Level 29, Anion Gap 6, Blood Urea Nitrogen 2L, Creatinine 0.7, Estimat Glomerular Filtration Rate > 60, Glucose Level 99, Calcium Level 8.0L, P hosphorus Level 3.9, Total Bilirubin 0.3, Aspartate Amino Transf (AST/SGOT) 12L, Alanine Aminotransferase (ALT/SGPT) 21, Alkaline Phosphatase 54, Total Protein 5.4L, Albumin 2.9L, Globulin 2.5, Albumin/Globulin Ratio 1.2 Height (Feet): 5 Height (Inches): 6.00 Weight (Pounds): 125 General Appearance: mild distress EENT: normal ENT inspection Neck: supple Cardiovascular: tachycardia Respiratory/Chest: decreased breath sounds Abdomen: soft, hypoactive bowel sounds, tender Extremities: non-tender Assessment/Plan Problem List: (1) Abdominal migraine ICD Codes: G43.D0 - Abdominal migraine, not intractable SNOMED: 61944672 (2) Nausea & vomiting ICD Codes: R11.2 - Nausea with vomiting, unspecified SNOMED: 54826236 (3) Abdominal pain ICD Codes: R10.9 - Unspecified abdominal pain SNOMED: 23580843 (4) Marijuana abuse ICD Codes: F12.10 - Cannabis abuse, uncomplicated SNOMED: 74969816 (5) Hypokalemia ICD Codes: E87.6 - Hypokalemia SNOMED: 84221346 Assessment/Plan: drug screen>> positive for THC pain control infectious DZ in put appreciated Cannabinoids hyperemesis syndrome will explain, nausea and vomiting, leukocytosis and possibly diarrhea agree with stool for C.diff now in Covid isolation [facility] records reviewed>>> mainly Dx of migraine headaches add sumatriptan add Benadryl repeat labs in am will fut Matt Hobbs MD Feb 04, 2020 12:40
[2020-02-04] MEDS ORDERED: SUMAtriptan 6mg/0.5ml Inj SUBQ SCH (12:45)
[2020-02-04] MEDS ORDERED: DiphenhydrAMINE 50mg/ml Inj IVP PRN (12:45)
[2020-02-04] MEDS: D5 1/2NS w/KCl 20mEq 1,000 ML IV SCH (13:12)
--- NOTE | 2020-02-04 14:38 | NUR ---
CASE MANAGEMENT:REVIEW SI;THC HYPEREMESIS SYNDROME. LEUKOCYTOSIS. 98.9 89 20 153/90 94% ON RA WBC 14.9 K+ 3.3 ALB 2.9 IS;IVF D5W @ 75 ML/HR REGLAN IV Q6 PRN ZOSYN IV Q8 ZOFRAN UV Q6 PRN HEPARIN SUBQ Q12 MED SURG STATUS DCP;FROM HOME
--- NOTE | 2020-02-04 15:32 | Diagnostic Imaging Report ---
Indication: Abdominal pain Technique: Supine view of the abdomen Comparison: none Findings: Gas pattern is unremarkable. There is an intrauterine device. Surgical clips are seen scattered throughout the lower abdomen and upper pelvis. Impression: No acute process. Findings as noted
--- NOTE | 2020-02-04 15:35 | Infectious Diseases Prog Note ---
Assessment/Plan Assessment/Plan ASSESSMENT AND PLAN: 1. abdominal pain, n/v, ? sepsis, leukocytosis - zosyn - day # 3 - f/u on blood cultures - monitor labs - GI f/u, kub 2. History of abdominal migraines with history of nausea, vomiting, and elevated white count. 3. History of anxiety. 4. Obsessive-compulsive disorder. 5. IV fluids. 6. Allergies include duloxetine. 7. Social history is negative. 8. Family history is noncontributory. 9. MAR was noted. 10. Case discussed with RN. 11. Case discussed with Dr. Scott. 12. Case discussed with the patient. Subjective Constitutional: Denies: fever HEENT: Denies: congestion Respiratory: Denies: shortness of breath Cardiovascular: Denies: chest pain Gastrointestinal/Abdominal: Reports: nausea, vomiting, other - + abdominal pain ; Denies: diarrhea Neurologic: Denies: headache Psychiatric: Denies: depression Skin: Denies: rash Hematologic: Denies: bleeding Musculoskeletal: Reports: pain - + abdominal pain Allergies: Coded Allergies: DULOXETINE (Verified Allergy, Unknown, 12/02/18) Objective Last 24 Hour Vital Signs Date Time Temp Pulse Resp B/P (MAP) Pulse Ox O2 Delivery O2 Flow Rate FiO2 02/04/20 12:00 97.7 77 18 145/79 (101) 98 02/04/20 09:00 Room Air 02/04/20 08:00 98.2 66 20 120/78 (92) 98 02/04/20 04:00 98.9 89 20 150/87 (108) 94 02/04/20 00:00 98.9 86 20 153/90 (111) 96 02/03/20 21:00 Room Air 02/03/20 20:00 98.6 94 20 152/87 (108) 97 02/03/20 18:51 98.1 02/03/20 16:54 98.1 02/03/20 16:00 98.2 85 18 133/75 (94) 99 Height (Feet): 5 Height (Inches): 6.00 Weight (Pounds): 125 General Appearance: no acute distress HEENT: normocephalic, atraumatic, anicteric, mucous membranes moist Respiratory/Chest: lungs clear, normal breath sounds, no respiratory distress, no accessory muscle use Cardiovascular: normal rate, regular rhythm, no gallop/murmur, no JVD Abdomen: normal bowel sounds, non distended, other - some tenterness, no rebound Genitourinary: other - no henson Extremities: no cyanosis Skin: no rash 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 A FEW SCATTERED FLUID-FILLED SMALL BOWEL LOOPS PERHAPS A MILD ILEUS. PATCHY GROUNDGLASS INFILTRATES IN THE LUNG BASES. QUESTION VIRAL PNEUMONITIS. IUD IN UTERUS. RIGHT ADNEXAL CYST LIKELY PHYSIOLOGIC. Microbiology Date/Time Source Procedure Growth Status 02/02/20 17:00 Nasopharynx Coronavirus COVID-19 PCR ([facility]) - Final Complete 02/02/20 13:09 Nasopharynx SARS-CoV-2 RdRp Gene Assay - Final Complete Laboratory Tests Test 02/04/20 05:24 White Blood Count 14.9 K/UL (4.8-10.8) H Red Blood Count 3.56 M/UL (4.20-5.40) L Hemoglobin 11.7 G/DL (12.0-16.0) L Hematocrit 32.5 % (37.0-47.0) L Mean Corpuscular Volume 91 FL (80-99) Mean Corpuscular Hemoglobin 32.8 PG (27.0-31.0) H Mean Corpuscular Hemoglobin Concent 35.9 G/DL (32.0-36.0) Red Cell Distribution Width 10.7 % (11.6-14.8) L Platelet Count 192 K/UL (150-450) Mean Platelet Volume 7.0 FL (6.5-10.1) Neutrophils (%) (Auto) 74.4 % (45.0-75.0) Lymphocytes (%) (Auto) 20.0 % (20.0-45.0) Monocytes (%) (Auto) 4.8 % (1.0-10.0) Eosinophils (%) (Auto) 0.5 % (0.0-3.0) Basophils (%) (Auto) 0.3 % (0.0-2.0) Sodium Level 137 MMOL/L (136-145) Potassium Level 3.3 MMOL/L (3.5-5.1) L Chloride Level 102 MMOL/L (98-107) Carbon Dioxide Level 29 MMOL/L (21-32) Anion Gap 6 mmol/L (5-15) Blood Urea Nitrogen 2 mg/dL (7-18) L Creatinine 0.7 MG/DL (0.55-1.30) Estimat Glomerular Filtration Rate > 60 mL/min (>60) Glucose Level 99 MG/DL (74-106) Calcium Level 8.0 MG/DL (8.5-10.1) L Phosphorus Level 3.9 MG/DL (2.5-4.9) Total Bilirubin 0.3 MG/DL (0.2-1.0) Aspartate Amino Transf (AST/SGOT) 12 U/L (15-37) L Alanine Aminotransferase (ALT/SGPT) 21 U/L (12-78) Alkaline Phosphatase 54 U/L (46-116) Total Protein 5.4 G/DL (6.4-8.2) L Albumin 2.9 G/DL (3.4-5.0) L Globulin 2.5 g/dL Albumin/Globulin Ratio 1.2 (1.0-2.7) Current Medications Medications (Trade) Dose Ordered Sig/Lillian Route PRN Reason Start Time Stop Time Status Last Admin Dose Admin Acetaminophen (Tylenol) 650 mg Q4H PRN ORAL Mild Pain (Pain Scale 1-3) 02/03/20 20:15 03/04/20 20:14 02/04/20 09:01 Clonazepam (KlonoPIN) 0.5 mg Q12H ORAL 02/03/20 08:00 02/09/20 07:59 02/04/20 08:43 Dextrose/ Electrolytes 1,000 ml @ 75 mls/hr [id number] IV 02/04/20 13:00 03/05/20 12:59 02/04/20 13:12 Diphenhydramine HCl (Benadryl) 25 mg Q6H PRN IVP Itching 02/04/20 12:45 03/05/20 12:44 02/04/20 13:11 Heparin Sodium (Porcine) (Heparin 5000 units/ml) 5,000 units Q12HR SUBQ 02/02/20 14:30 03/18/20 14:29 02/04/20 08:44 Metoclopramide HCl (Reglan) 10 mg Q6H PRN IVP Nausea & Vomiting 02/04/20 10:00 03/05/20 09:59 02/04/20 10:09 Ondansetron HCl (Zofran) 4 mg Q6H PRN IVP Nausea & Vomiting 02/02/20 15:14 03/03/20 15:13 02/04/20 09:00 Piperacillin Sod/ Tazobactam Sod 3.375 gm/Dextrose 100 ml @ 25 mls/hr EVERY 8 HOURS IVPB 02/02/20 22:00 02/07/20 21:59 02/04/20 13:12 Venlafaxine HCl (Effexor-XR) 150 mg DAILY ORAL 02/03/20 09:00 05/03/20 08:59 02/04/20 08:43 Shaka Tiwari MD Feb 04, 2020 15:35
[2020-02-04 16:00] VITALS: BP 150/94
--- NOTE | 2020-02-04 17:25 | NUR ---
INSURANCE CLINICALS/REVIEW FAXED TO [facility] P:[phone] F:[phone]
--- NOTE | 2020-02-04 19:16 | NUR ---
NURSE HAND-OFF: Important Events on Shift:continuous nausea and vomiting throughout shift Patient Status: stable Diet: npo Pending Orders: none Pending Results/Labs:none Pending MD notification:none Latest Vital Signs: Temperature 98.6 , Pulse 73 , B/P 150 /94 , Respiratory Rate 20 , O2 SAT 98 , Room Air, O2 Flow Rate . Vital Sign Comment: stable Latest Renteria Fall Score: 20 Fall Risk: Low Risk Safety Measures: Call light Within Reach, Bed Alarm Zone 1, Side Rails Side Rails x2, Bed position Low and Locked. Fall Precautions: Yellow Socks Patient Fall Education Report given to VARGAS Zhu.
--- NOTE | 2020-02-04 19:30 | NUR ---
NURSE NOTES: Received patient in bed. A&OX4. IV site patent and intact. Remind patient collect stool sample again, patient fully understood. Bed in lowest position. Call light within reach. Will continue to monitor.
[2020-02-04 20:00] VITALS: BP 116/66
[2020-02-05] VITALS: BP 117/63
[2020-02-05] MEDS: D5 1/2NS w/KCl 20mEq 1,000 ML IV SCH ×2 (03:49→15:40)
[2020-02-05 04:00] VITALS: BP 121/64
[2020-02-05 07:31] LABS: BASOPHILS % (AUTO) 1.1 % (0.0-2.0); EOSINOPHILS % (AUTO) 1.3 % (0.0-3.0); HEMATOCRIT 36.3 % (37.0-47.0); HEMOGLOBIN 12.9 G/DL (12.0-16.0); MEAN CORPUSCULAR VOLUME 93 FL (80-99); MONOCYTES % (AUTO) 8.1 % (1.0-10.0); NEUTROPHILS % (AUTO) 54.6 % (45.0-75.0); PLATELET COUNT 210 K/UL (150-450); RED CELL DISTRIBUTION WIDTH 10.9 % (11.6-14.8); WHITE BLOOD COUNT 7.6 K/UL (4.8-10.8)
--- NOTE | 2020-02-05 07:32 | NUR ---
NURSE HAND-OFF: Important Events on Shift: Patient Status: Diet: NPO Pending Orders: Pending Results/Labs: Pending MD notification: Latest Vital Signs: Temperature 97.7 , Pulse 66 , B/P 121 /64 , Respiratory Rate 20 , O2 SAT 98 , Room Air, O2 Flow Rate . Vital Sign Comment: Latest Renteria Fall Score: 20 Fall Risk: Low Risk Safety Measures: Call light Within Reach, Bed Alarm Zone 1, Side Rails Side Rails x2, Bed position Low and Locked. Fall Precautions: Yellow Socks Patient Fall Education Report given to Ashley KAYE.
[2020-02-05 07:37] LABS: ANION GAP 8 mmol/L (5-15); BLOOD UREA NITROGEN 1 mg/dL (7-18); CALCIUM 8.8 MG/DL (8.5-10.1); CARBON DIOXIDE 29 MMOL/L (21-32); CHLORIDE 102 MMOL/L (98-107); CREATININE 0.8 MG/DL (0.55-1.30); POTASSIUM 3.1 MMOL/L (3.5-5.1); SODIUM 139 MMOL/L (136-145)
[2020-02-05 08:00] VITALS: BP 133/80
--- NOTE | 2020-02-05 08:00 | NUR ---
NURSE NOTES: Received patient in bed. sleeping but arousable no sign of distress,denies pain or discomfort IVF patent and infusing well. on fall precaution,Bed in lowest position. Call light within reach. Will continue to monitor. janet fink
[2020-02-05] MEDS: Venlafaxine XR 150mg cap ORAL SCH (09:03)
[2020-02-05] MEDS: clonazePAM 0.5mg tab ORAL SCH (09:03)
[2020-02-05] MEDS: Heparin 5000 units/ml inj SUBQ SCH (09:07)
--- NOTE | 2020-02-05 10:35 | Pulmonology Progress Note ---
Shanae Quiles CORRECTIVE THERAPY AIDE 02/05/20 1035: Subjective ROS Limited/Unobtainable: Yes Interval Events: Musculoskeletal: Reports: pain - + abdominal pain Allergies: Coded Allergies: DULOXETINE (Verified Allergy, Unknown, 12/02/18) Subjective leuk resolved, no fevers no emesis over night no diarrhea Objective Last 24 Hour Vital Signs Date Time Temp Pulse Resp B/P (MAP) Pulse Ox O2 Delivery O2 Flow Rate FiO2 02/05/20 08:30 Room Air 02/05/20 08:00 97.9 70 17 133/80 (97) 99 02/05/20 04:00 97.7 66 20 121/64 (83) 98 02/05/20 00:00 97.7 68 20 117/63 (81) 98 02/04/20 21:00 Room Air 02/04/20 20:00 97.7 77 20 116/66 (83) 100 02/04/20 16:00 98.6 73 20 150/94 (112) 98 02/04/20 12:00 97.7 77 18 145/79 (101) 98 Intake and Output 02/04/20 02/05/20 19:00 07:00 Intake Total 75 ml 950 ml Balance 75 ml 950 ml IV Total 75 ml 950 ml # Voids 3 2 General Appearance: no acute distress HEENT: normocephalic, atraumatic Respiratory: lungs clear Cardiovascular: normal rate Abdomen: normal bowel sounds - soft,minimal TTP, no rebound, no guarding Extremities: no edema, pedal pulses normal Skin: no rash Neurologic: alert, oriented x 3, responsive, normal mood/affect Musculoskeletal: normal muscle bulk Microbiology Date/Time Source Procedure Growth Status 02/02/20 17:00 Nasopharynx Coronavirus COVID-19 PCR ([facility]) - Final Complete 02/02/20 13:09 Nasopharynx SARS-CoV-2 RdRp Gene Assay - Final Complete Laboratory Tests 02/05/20 06:20: White Blood Count 7.6, Red Blood Count 3.90L, Hemoglobin 12.9, Hematocrit 36.3L, Mean Corpuscular Volume 93, Mean Corpuscular Hemoglobin 33.1H, Mean Corpuscular Hemoglobin Concent 35.7, Red Cell Distribution Width 10.9L, Platelet Count 210, Mean Platelet Volume 6.0L, Neutrophils (%) (Auto) 54.6, Lymphocytes (%) (Auto) 35.0, Monocytes (%) (Auto) 8.1, Eosinophils (%) (Auto) 1.3, Basophils (%) (Auto) 1.1, Sodium Level 139, Potassium Level 3.1L, Chloride Level 102, Carbon Dioxide Level 29, Anion Gap 8, Blood Urea Nitrogen 1L, Creatinine 0.8, Estimat Glomerular Filtration Rate > 60, Glucose Level 91, Calcium Level 8.8 Current Medications Medications (Trade) Dose Ordered Sig/Lillian Route PRN Reason Start Time Stop Time Status Last Admin Dose Admin Acetaminophen (Tylenol) 650 mg Q4H PRN ORAL Mild Pain (Pain Scale 1-3) 02/03/20 20:15 03/04/20 20:14 02/04/20 09:01 Clonazepam (KlonoPIN) 0.5 mg Q12H ORAL 02/03/20 08:00 02/09/20 07:59 02/05/20 09:03 Dextrose/ Electrolytes 1,000 ml @ 75 mls/hr [id number] IV 02/04/20 13:00 03/05/20 12:59 02/05/20 03:49 Diphenhydramine HCl (Benadryl) 25 mg Q6H PRN IVP Itching 02/04/20 12:45 03/05/20 12:44 02/04/20 13:11 Heparin Sodium (Porcine) (Heparin 5000 units/ml) 5,000 units Q12HR SUBQ 02/02/20 14:30 03/18/20 14:29 02/05/20 09:07 Metoclopramide HCl (Reglan) 10 mg Q6H PRN IVP Nausea & Vomiting 02/04/20 10:00 03/05/20 09:59 02/04/20 18:34 Ondansetron HCl (Zofran) 4 mg Q6H PRN IVP Nausea & Vomiting 02/02/20 15:14 03/03/20 15:13 02/04/20 21:28 Piperacillin Sod/ Tazobactam Sod 3.375 gm/Dextrose 100 ml @ 25 mls/hr EVERY 8 HOURS IVPB 02/02/20 22:00 02/07/20 21:59 02/05/20 05:13 Venlafaxine HCl (Effexor-XR) 150 mg DAILY ORAL 02/03/20 09:00 05/03/20 08:59 02/05/20 09:03 Assessment/Plan Assessment/Plan ASSESSMENT Abdominal pain with intractable nausea/vomiting Leukocytosis-trending down Patchy ground-glass pulmonary infiltrates, prob PNA Electrolyte abnormalities Hx abdominal migraines THC use ? Cannabinoids hyperemesis syndrome PLAN OF CARE MS floor Repeat COVID PCR given patchy ground glass infiltrates-NGT Monitor and replete electrolytes > nephro input appreciated P stable, K further replaced today, IVF with KCL as well ID follows-> continue zosyn GI follows, stool C dif diarrhea resolved per GI: Cannabinoids hyperemesis syndrome will explain, nausea and vomiting, leukocytosis and possibly diarrhea CL diet and advance as tolerated cont IVF cont home Klonopin and Effexor DVT ppx: heparin SC case discussed and evaluated by supervising physician Wilder Scott MD 02/05/20 1244: Subjective Allergies: Coded Allergies: DULOXETINE (Verified Allergy, Unknown, 12/02/18) Assessment/Plan Assessment/Plan Patient seen and examined with CORRECTIVE THERAPY AIDE and the above formulated assessment and plan. Shanae Quiles NP Feb 05, 2020 10:35 Wilder Scott MD Feb 05, 2020 12:44
[2020-02-05 12:11] VITALS: BP 132/81
[2020-02-05 16:11] VITALS: BP 112/67
--- NOTE | 2020-02-05 17:40 | NUR ---
nurse notes discharged to home obtained, patient agreed with the plan of care, discharge instruction packet handed to patient , discharge teaching done all questions answered verbalized understanding [id number] discharged in stable condition with all belongings taken accompanied by myself discharged via private car janet fink
--- NOTE | 2020-02-05 20:01 | General Progress Note ---
Subjective Allergies: Coded Allergies: DULOXETINE (Verified Allergy, Unknown, 12/02/18) Subjective Seen in am feeling better tolerating PO wants dc Objective Last 24 Hour Vital Signs Date Time Temp Pulse Resp B/P (MAP) Pulse Ox O2 Delivery O2 Flow Rate FiO2 02/05/20 16:11 97.7 75 18 112/67 (82) 99 02/05/20 12:11 96.4 70 18 132/81 (98) 99 02/05/20 08:30 Room Air 02/05/20 08:00 97.9 70 17 133/80 (97) 99 02/05/20 04:00 97.7 66 20 121/64 (83) 98 02/05/20 00:00 97.7 68 20 117/63 (81) 98 02/04/20 21:00 Room Air Intake and Output 02/04/20 02/05/20 19:00 07:00 Intake Total 75 ml 950 ml Balance 75 ml 950 ml IV Total 75 ml 950 ml # Voids 3 2 Laboratory Tests 02/05/20 06:20: White Blood Count 7.6, Red Blood Count 3.90L, Hemoglobin 12.9, Hematocrit 36.3L, Mean Corpuscular Volume 93, Mean Corpuscular Hemoglobin 33.1H, Mean Corpuscular Hemoglobin Concent 35.7, Red Cell Distribution Width 10.9L, Platelet Count 210, Mean Platelet Volume 6.0L, Neutrophils (%) (Auto) 54.6, Lymphocytes (%) (Auto) 35.0, Monocytes (%) (Auto) 8.1, Eosinophils (%) (Auto) 1.3, Basophils (%) (Auto) 1.1, Sodium Level 139, Potassium Level 3.1L, Chloride Level 102, Carbon Dioxide Level 29, Anion Gap 8, Blood Urea Nitrogen 1L, Creatinine 0.8, Estimat Glomerular Filtration Rate > 60, Glucose Level 91, Calcium Level 8.8 Height (Feet): 5 Height (Inches): 6.00 Weight (Pounds): 125 Objective NCAT supple CTA RRR Abd soft ND no edema Assessment/Plan Assessment/Plan: Assessment/Plan Problem List: (1) Abdominal migraine ICD Codes: G43.D0 - Abdominal migraine, not intractable SNOMED: 42471577 (2) Nausea & vomiting ICD Codes: R11.2 - Nausea with vomiting, unspecified SNOMED: 88991699 (3) Abdominal pain ICD Codes: R10.9 - Unspecified abdominal pain SNOMED: 61666320 (4) Marijuana abuse ICD Codes: F12.10 - Cannabis abuse, uncomplicated SNOMED: 38235239 (5) Hypokalemia ICD Codes: E87.6 - Hypokalemia SNOMED: 47004937 Assessment/Plan: drug screen>> positive for THC pain control infectious DZ in put appreciated Therese Perez MD Feb 05, 2020 20:01
--- NOTE | 2020-02-06 00:11 | CDS Physician Query ---
Clarification is required for compliance, coding accuracy, and to reflect severity of illness for this patient. Dear Wilder Koo MD. Date: 02/05/2020 CDI/CDS Name: Clarence Jones Clinical Documentation Statement: "34 y/o female w/ hx anxiety/depression, abdominal migraine with 5 days of abdominal pain, nausea, vomiting, and diarrhea. Has not fevers or chills. No BM x 5 days. Minimal passing of gas. Noted with leukocytosis of 34. CT abdomen/pelvis done with no significant findings in abdomen but noted with patchy ground glass infiltrates in lung cuts. COVID rapid PCR negative in ED. She is feeling improved with medications and IVF.. " [ H& P Wilder Scott MD Feb 02, 2020 16:08] ASSESSMENT:n/v, ? sepsis, leukocytosis, ? previous covid-19/pna, ? cap [ Inf PN Shaka Tiwari MDFeb 02, 2020 16:57] Clinical Finding Show: Vitals (02/01): T98.6F, Pulse 109, RR 18. LAB (02/01) : Hemat; WBC 34.6, Neut% 91 Chem: Sodium 127, Gluc 132. Medication: Piperacillin Sod IV A possible diagnosis of "SEPSIS' was made in the medical record on Infection disease PNs Upon review, it is difficult to determine whether this diagnosis has been ruled in, ruled out, or is still being worked up. Please indicate below the status of the aforementioned diagnosis: [] Treated and resolve [x] Presumed and treated [] Currently under treatment [] Still being worked-up [] Ruled out Present on Admission: [] Yes [] No [] Clinically Undetermined Physician signature Date Please also document in your Progress Notes and/or Discharge Summary and indicate if the condition was present on admission. MTDD
--- NOTE | 2020-02-06 12:53 | NUR ---
CASE MANAGEMENT: Faxed clinical info (face sheet /progress notes 02-05-20) to [facility] HERNANDEZ @ [phone]. AUTH#[id number]
--- NOTE | 2020-02-07 08:04 | Discharge Summary ---
Discharge Summary Discharge Summary _ DATE OF ADMISSION: 02/02/2020 DATE OF DISCHARGE: 02/05/2020 DISCHARGED BY: Dr. Scott REASON FOR ADMISSION: 34 years old female with past medical history of anxiety, depression, abdominal migraine, presented with complaints of abdominal pain associated with nausea , vomiting and diarrhea for the past 5 days. No fever or chills. Patient noted to have leukocytosis of 34.6. Sodium 127, potassium 2.8, phosphorus 1.5; stable LFT and lipase. CT scan of the abdomen and pelvis revealed no significant findings in the abdome n , but showed patchy ground-glass infiltrates in the lung . Rapid COVID-19 was negative. Urinalysis revealed no evidence of urinary tract infection. Urine test was negative. Urine toxicology screen was positive for THC. In emergency department patient received analgesic, IV fluids along with antiemetic and antianxiety. Potassium was replaced. Patient admitted for further management. CONSULTANTS: ID specialist Dr. Tiwari GI specialist Dr. Hobbs [facility] COURSE: Patient admitted to medical surgical floor. Patient received IV hydration Repeated COVID by PCR was done, given patchy ground-glass infiltrates , which was negative. Patient was on IV antibiotic as per ID specialist recommendation for possible pneumonia. Home medication continued, including Effexor . DVT prophylaxis provided. Electrolytes were all corrected. Stool for C. difficile was ordered , however diarrhea resolved. Supportive care provided. Antiemetic provided as needed. Pain management was addressed. Abdominal x-ray revealed no acute findings. Pulse oximetry remained stable on room air. No evidence of respiratory distress. Patient slowly started on liquid diet and was advanced as tolerated . Patient was able to tolerate diet. Per GI specialist cannabinoids hyperemesis syndrome will explain nausea , vomiting and leukocytosis. Leukocytosis resolved . No further abdominal pain, nausea or vomiting . Patient clinically stabilized and was ready for discharge. FINAL DIAGNOSES: Abdominal pain with intractable nausea/vomiting Probably cannabinoid hyperemesis syndrome Leukocytosis- resolved Patchy ground glass pulmonary infiltrates, possible pneumonia Electrolyte abnormality History of abdominal migraine THC use Obsessive-compulsive disorder DISCHARGE MEDICATIONS: See Medication Reconciliation list. DISCHARGE INSTRUCTIONS: Patient was discharged home. Follow-up with primary care provider in 1 week. Shanae Quiles NP Feb 07, 2020 08:04
--- NOTE | 2020-02-08 16:36 | NUR ---
INSURANCE DC SUMMARY FAXED TO [facility] [phone]
== END 2020-02-05 17:30 | disposition home or self-care (01) | DRG 871 ==
LOC: EMR 09:22 → 4E 10:14 → EDBEDREQ 11:11 → 4E 16:45
DX: A41.9 Sepsis, unspecified organism (principal); J18.9 Pneumonia, unspecified organism; E87.1 Hypo-osmolality and hyponatremia; E87.6 Hypokalemia; F42.9 Obsessive-compulsive disorder, unspecified; F12.188 Cannabis abuse with other cannabis-induced disorder; Z88.8 Allergy status to other drugs, medicaments and biological substances; R11.2 Nausea with vomiting, unspecified; E87.8 Other disorders of electrolyte and fluid balance, not elsewhere classified; G43.D0 Abdominal migraine, not intractable
CPT/HCPCS: 36415; 74018; 74177; 80048; 80053; 80307; 81003; 81025; 83690; 83735; 84100; 85007; 85025; 96361; 96374; 96375; 99285; J2405; J2765; J7030; J8499; U0002